=== PATIENT | female | born 1975 | race Caucasian/White ===

== ENCOUNTER → 2020-06-29 09:36 | Outpatient (BNVA) | payer MEDICAID, SELFPAY | PROVIDERS: PCP Internal Medicine; Visit Provider Physician Assistant ==

== ENCOUNTER → 2020-07-01 08:28 | Outpatient (BNVA) | payer MEDICAID, SELFPAY | PROVIDERS: PCP Internal Medicine; Visit Provider Surgery ==

== ENCOUNTER 2020-07-07 08:53 | Outpatient (REF) | payer OTHER, SELFPAY ==
--- NOTE | ~2020-07-07 | XR_ITS ---
EXAMINATION: XR CHEST CLINICAL INFORMATION: Severe obesity due to excessive calories COMPARISON: None TECHNIQUE: 2 views of the chest were obtained. FINDINGS: No significant abnormality is noted involving the heart, lungs, mediastinum, bony thorax or soft tissues. XR/XR chest 2V IMPRESSION: Unremarkable chest examination.
--- NOTE | 2020-07-07 09:15 | ECG_ITS ---
Test Reason : MORBID OBESITY Blood Pressure : / mmHG Vent. Rate : 075 BPM Atrial Rate : 075 BPM P-R Int : 136 ms QRS Dur : 080 ms QT Int : 384 ms P-R-T Axes : 025 007 014 degrees QTc Int : 428 ms Normal sinus rhythm Cannot rule out Inferior infarct , age undetermined Abnormal ECG No previous ECGs available Referred By: Jimmy Rachel Electronically Signed By:KRYS WREN MD
[2020-07-07 09:57] LABS: MANUAL DIFF FLAG NO
[2020-07-07 10:06] LABS: Basophils Percent Auto 0.4 % (0-2); Eosinophils Absolute Auto 0.1 X10*3/uL (0.0-0.4); Hematocrit 42.7 % (37-47); Hemoglobin 13.8 g/dl (12.0-16.0); Imm Gran Abs Auto 0.02 X10*3/uL (0.00-0.03); Imm Gran Pct Auto 0.3 % (0.0-0.4); Lymphocytes Absolute Auto 2.1 X10*3/uL (1.2-4.9); Lymphocytes Percent Auto 27.9 % (20-40); Mean Corpuscular HGB Conc 32.3 g/dl (31.0-35.0); Mean Corpuscular Hemoglobin 29.1 pg (27.0-33.0); Mean Corpuscular Volume 90.1 fL (80-98); Mean Platelet Volume 10.3 fL (9.4-12.3); Monocytes Absolute Auto 0.5 X10*3/uL (0.1-1.2); Monocytes Percent Auto 6.5 % (2-11); Neutrophils Absolute Auto 4.7 X10*3/uL (2.0-8.3); Neutrophils Percent Auto 63.9 % (45-73); Platelet Count 323 X10*3/uL (160-400); Red Blood Count 4.74 X10*6/uL (4.20-5.50); Red Cell Distribution Width 12.7 % (11.0-16.0); White Blood Count 7.3 X10*3/uL (4.8-10.8)
[2020-07-07 10:30] LABS: Alanine Aminotransferase 20 U/L (0-31); Albumin Level 4.3 g/dL (3.5-5.0); Alkaline Phosphatase 68 U/L (39-117); Anion Gap 12 (12-20); Aspartate Amino Transferase 19 U/L (5-31); Bilirubin Total 0.5 mg/dL (0.0-1.0); Blood Urea Nitrogen 16 mg/dL (9-16); C Reactive Protein 0.27 mg/dL (< or = 0.50); Calcium 9.3 mg/dL (8.4-10.2); Carbon Dioxide 28 mmol/L (22-29); Chloride 105 mmol/L (96-108); Cholesterol 175 mg/dL; Estimated Glomerular Filt Rate > 60; Glucose Random 91 mg/dL (60-115); HDL Cholesterol 51 mg/dL; LDL Cholesterol Calculated 110 mg/dl; Potassium 4.2 mmol/L (3.3-5.1); Sodium 141 mmol/L (135-145); Total Protein 7.5 g/dL (6.5-8.0); Triglycerides 70 mg/dL
[2020-07-07 10:32] LABS: Estimated Average Glucose 103 mg/dL; Hemoglobin A1c % 5.2 %
[2020-07-07 10:52] LABS: Ferritin 201 ng/mL (10-250); TSH reflex Free T4 0.61 uIU/mL (0.32-4.0); Vitamin D 25-OH Total 13.4 ng/mL (>30)
[2020-07-07 10:53] LABS: Folate 15.7 ng/mL (> or = 4.0); Vitamin B12 440 pg/mL (200-900)
[2020-07-08 09:22] LABS: Calcium (PTHI) 9.3 mg/dL (8.6-10.2); Insulin Level Total 4.7 uIU/mL; PTHI 48 pg/mL (14-64)
[2020-07-11 02:37] LABS: Zinc 70 mcg/dL (60-130)
[2020-07-11 21:06] LABS: Vitamin A 32 mcg/dL (38-98)
[2020-07-13 10:22] LABS: Vitamin B1 11 nmol/L (8-30)
== END 2020-07-07 08:54 | disposition home or self-care (01) ==
LOC: HO.LAB 08:53
PROVIDERS: Visit Provider Surgery
DX: E66.01 Morbid (severe) obesity due to excess calories (principal); I10 Essential (primary) hypertension; G47.30 Sleep apnea, unspecified; J45.909 Unspecified asthma, uncomplicated
CPT/HCPCS: 36415; 71046; 80053; 80061; 82306; 82607; 82728; 82746; 83036; 83525; 83970; 84425; 84443; 84590; 84630; 85025; 86140; 93005

== ENCOUNTER → 2020-07-27 08:15 | Outpatient (BNVA) | payer OTHER, SELFPAY | PROVIDERS: PCP Internal Medicine; Visit Provider Surgery ==

== ENCOUNTER 2020-08-01 07:39 | Outpatient (REF) | payer OTHER, SELFPAY ==
--- NOTE | ~2020-08-01 | FL_ITS ---
EXAMINATION: XR GI SERIES CLINICAL INFORMATION: Morbid/severe obesity due to excessive calories. COMPARISON: None. TECHNIQUE: Routine upper GI air contrast study was performed. FINDINGS: Following oral administration of thick barium and effervescent granules, there is normal propagation of bolus from the oral cavity through the pharynx, esophagus and into stomach without any evidence of obstruction, narrowing or stricture. The course, caliber and peristalsis of the stomach, duodenal bulb and the sweep are normal. On placing patient supine lying, there is moderate gastroesophageal reflux with a transitional hiatal hernia. Incidental finding of cholecystectomy. FLUOROSCOPY TIME: 2.5 minutes. DOSE AREA PRODUCT: 63.747 uGy-m2 (microgray-meter squared). FL/FL upper GI series IMPRESSION: Moderate gastroesophageal reflux with a transient hiatal hernia. The rest of the upper GI exam is unremarkable.
--- NOTE | ~2020-08-01 | US_ITS ---
EXAMINATION: US COMPLETE ABDOMEN WITH LIVER ELASTOGRAPHY CLINICAL INFORMATION: Morbid obesity due to excess calories. COMPARISON: 05/01/2018 TECHNIQUE: Real-time imaging of the abdominal viscera. Noninvasive ultrasound liver fibrosis assessment is performed using Denise ElastPQ point quantification shear wave elastography (pSWE) with a C5-2 MHz transducer. Multiple elastography samples are obtained. FINDINGS: PANCREAS: Normal. ABDOMINAL AORTA: The proximal, middle, and distal aortic segments are normal in caliber. INFERIOR VENA CAVA: Visualized portions are normal. LIVER: Normal. The liver demonstrates normal size, contour and echogenicity. No focal lesion or intrahepatic biliary duct dilatation. The right lobe measures 15.8 cm in length. The left lobe measures 8.9 cm in length. Portal flow is towards the liver (hepatopetal). Shear wave liver elastography median stiffness is 1.53 m/s (reference: normal median stiffness is 1.3 m/s or less). IQR/median stiffness to assess sampling precision is 0.15 (reference: good quality data set is IQR/median stiffness of 0.15 or less). GALLBLADDER: Cholecystectomy. COMMON BILE DUCT: Normal in caliber measuring 0.2 cm in diameter. RIGHT KIDNEY: Normal. No hydronephrosis. No renal calculi or focal parenchymal lesions. The kidney measures 10.6 cm in maximum dimension. LEFT KIDNEY: Normal. No hydronephrosis. No renal calculi or focal parenchymal lesions. The kidney measures 10.5 cm in maximum dimension. SPLEEN: Normal. The spleen measures 8.6 cm in maximum dimension. FREE FLUID: None. US/US abdomen comp w elastography IMPRESSION: 1. Unremarkable abdominal ultrasound. 2. Liver elastography: In the absence of other known clinical signs, measurements rule out compensated advanced chronic liver disease. If there are known clinical signs, further testing may be needed for confirmation. REFERENCE: Society of Radiologists in Ultrasound Liver Stiffness Thresholds (2020): LIVER STIFFNESS THRESHOLDS: *Liver Stiffness equal or less than 1.3 m/s: High probability of being normal. *Liver Stiffness less than 1.7 m/s: In the absence of other known clinical signs, rules out compensated advanced chronic liver disease. *Liver Stiffness 1.7-2.1 m/s: Suggestive of compensated advanced chronic liver disease but need further test for confirmation. *Liver Stiffness over 2.1 m/s: Rules in compensated advanced chronic liver disease. *Liver Stiffness over 2.4 m/s: Suggestive of clinically significant portal hypertension. QUALITY OF DATA SET: *IQR/Median value equal or less than 0.15 implies a quality data set. *IQR/Median value over 0.15 implies a poor quality data set. SIGNIFICANT CHANGE FROM PRIOR EXAM: Significant change if liver stiffness measurement is 10% or greater from prior exam. OTHER CONSIDERATIONS: The stage of liver fibrosis may be overestimated in the setting of acute hepatitis, liver inflammation, elevated liver function tests, hepatic vascular congestion, obstructive cholestasis, non-fasting state, and infiltrative diseases such as amyloidosis and lymphoma. In some patients with NAFLD, the liver stiffness thresholds for compensated advanced chronic liver disease may be lower. In causes other than viral hepatitis and NAFLD, liver stiffness thresholds are not well established.
== END 2020-08-01 07:40 | disposition home or self-care (01) ==
LOC: HO.US 07:39
PROVIDERS: PCP Internal Medicine; Visit Provider Surgery
DX: Z01.818 Encounter for other preprocedural examination (principal); E66.01 Morbid (severe) obesity due to excess calories; K21.9 Gastro-esophageal reflux disease without esophagitis; I10 Essential (primary) hypertension; G47.33 Obstructive sleep apnea (adult) (pediatric); J45.909 Unspecified asthma, uncomplicated
CPT/HCPCS: 74240; 76705; 76981

== ENCOUNTER → 2020-08-03 07:49 | Outpatient (REF) | payer OTHER, SELFPAY ==
--- NOTE | 2020-08-03 07:54 | CA_ITS ---
Acquisition Time: 2020-08-03 09:04:59 Total Exercise Time: 00:06:09 Test Indications: Abnormal ECG Medications: SINGULAIR VERAPAMIL Protocol: SONNY Max HR: 155 BPM 88% of Pred: 175 BPM Max BP: 140/080 mmHG Max Work Load: 7.1 METS Exercise stress test using Sonny protocol. total of 6 min 9 sec. With METS 7.10, and TAPHR up to 88 %. Pt tolerated well, denies any anginal sx. EKG with occ. PAC's in recovery. No ischemic changes seen during exercise or in recovery period. Normotensive response to exercise . Test reviewed with Dr. Macdonald. Referred By: Jimmy Rachel Overread By: Millicent Montaño
== END ==
LOC: HO.CARD 07:49
PROVIDERS: Visit Provider Surgery
DX: Z01.818 Encounter for other preprocedural examination (principal); R06.02 Shortness of breath; R94.31 Abnormal electrocardiogram [ECG] [EKG]; I10 Essential (primary) hypertension
CPT/HCPCS: 93016; 93017; 93018

== ENCOUNTER 2020-08-05 14:44 | Outpatient (REF) | payer OTHER, SELFPAY ==
--- NOTE | ~2020-08-05 | MM_ITS ---
EXAMINATION: MM SCREENING DIGITAL BREAST TOMOSYNTHESIS, BILATERAL CLINICAL INFORMATION: Screening. Asymptomatic. The lifetime risk of breast cancer based on the Tyrer-Cuzick Model is 6%. COMPARISON: Outside mammography 06/14/2017, 04/14/2016, 09/13/2015 ([facility]). TECHNIQUE: Digital breast tomosynthesis is performed in both the craniocaudal and mediolateral oblique views along with computer-aided detection (CAD). Synthesized 2D images are generated from the tomosynthesis. Additional bilateral CC and right MLO views are provided. FINDINGS: There are scattered areas of fibroglandular density (ACR BI-RADS breast composition Category b). Parenchymal pattern is similar to prior exams. Smooth oval asymmetry central right breast is stable. There is no developing density or architectural abnormality or abnormal calcifications. The axilla and skin contours are unremarkable. MM/MM tomosynthesis screening BI IMPRESSION: No significant changes from prior outside exams. ASSESSMENT: BI-RADS 2: Benign RECOMMENDATION: Routine annual mammography screening. This patient's information was entered into a reminder system with a target due date for their next mammogram.
[2020-08-06 15:12] LABS: H Pylori Breath Test NOT DETECTED (NOT DETECTED)
== END 2020-08-05 14:45 | disposition home or self-care (01) ==
LOC: HO.MAMMO 14:44
PROVIDERS: PCP Internal Medicine; Referring Provider Surgery; Visit Provider Internal Medicine
DX: Z12.31 Encounter for screening mammogram for malignant neoplasm of breast (principal); E66.01 Morbid (severe) obesity due to excess calories; I10 Essential (primary) hypertension; G47.30 Sleep apnea, unspecified; J45.909 Unspecified asthma, uncomplicated
CPT/HCPCS: 77063; 77067; 83013; 99211

== ENCOUNTER → 2020-08-10 08:14 | Outpatient (BNVA) | payer OTHER, SELFPAY | PROVIDERS: PCP Internal Medicine; Visit Provider Dietitian, Registered ==

== ENCOUNTER → 2020-08-22 08:10 | Outpatient (BNVA) | payer OTHER, SELFPAY | PROVIDERS: PCP Internal Medicine; Visit Provider Surgery ==

== ENCOUNTER → 2020-08-29 08:11 | Outpatient (BNVA) | payer OTHER, SELFPAY | PROVIDERS: PCP Internal Medicine; Visit Provider Dietitian, Registered | DX: E66.01 Morbid (severe) obesity due to excess calories (principal) | CPT/HCPCS: 97803 ==

== ENCOUNTER → 2020-09-02 07:38 | Outpatient (REF) | payer OTHER, SELFPAY ==
--- NOTE | 2020-09-02 07:43 | CA_ITS ---
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 The visually estimated ejection fraction is between 55-60%. - No obvious valvular pathology seen on this study. Findings Procedure Information Contrast agent, definity, is being given per protocol without apparent complications. Left Ventricle Normal left ventricular cavity size. There is normal left ventricular wall thickness. The left ventricular systolic function is normal. The visually estimated ejection fraction is between 55-60%. There is no evidence of regional wall motion abnormalities. Diastolic function is normal for age. Right Ventricle Normal right ventricular cavity size and systolic function. Atria The left atrium is normal in size. The right atrium is normal in size. Aortic Valve The aortic valve was not well visualized. There is no aortic valve stenosis. There is no aortic valve regurgitation. Mitral Valve The mitral valve appears normal. There is no mitral valve regurgitation. There is no mitral valve stenosis. Pulmonic Valve The pulmonic valve was not well visualized. Tricuspid Valve Normal tricuspid valve structure. There is trace tricuspid valve regurgitation. The pulmonary artery systolic pressure is normal. Great Vessels The aortic annulus, sinuses of valsalva, and asc aorta are normal in size. Venous The inferior vena cava is normal in size and collapses greater than 50% with inspiration. Pericardium/Pleural There is no evidence of pericardial effusion. Prior Study Comparison No significant change compared to prior study dated: 08/08/2018. Recommendations, Care & Conclusions No obvious valvular pathology seen on this study. Measurements 2D Linear Measurements RVIDd: 3.20 RVIDd Index: 1.57 IVSd: 0.93 0.6-0.9/0.6-1.0 cm LVIDd: 3.83 3.9-5.3/4.2-5.9 cm LVIDd Index: 1.88 2.4-3.2/2.2-3.1 cm/m2 LVIDs: 2.50 2.0-3.6 cm LVPWd: 0.81 0.7-1.1 cm Ao Root: 3.20 2.1-3.5 cm LA Diam: 3.30 2.7-3.8/3.0-4.0 cm LAIDs Index: 1.62 1.5-2.3 cm/m2 LV Mass: 121.39 67-162/88-224 g LV Mass Index: 59.50 43-95/49-115 g/m2 LVOT Diam: 2.40 3.0+(-)1.3 cm 2D Systolic Function EF 4C: 55.50 >55% EF 2C: 69.20 >55% EF BiP: 62.10 >55% Mitral Valve MV Pk E: 0.84 MV PK A: 0.66 MV Decel Time: 202.00 E/A: 1.30 E'Lateral: 12.80 E'Medial: 9.68 E/E' Med: 8.70 E/E' Lat: 6.60 PHT: 59.00 MVA PHT: 3.73 Decel Howell: 4.16 Aortic Valve AoV Pk Octavio: 1.26 AoV Mn Octavio: 0.85 AoV VTI: 0.28 AoV Pk Grad: 6.00 Aov Mn Grad: 3.00 JOE Cont.VTI: 3.26 LVOT LVOT Pk Octavio: 0.80 LVOT Mn Octavio: 0.57 LVOT VTI: 0.21 LVOT Pk Grad: 3.00 LVOT Mn Grad: 2.00 LVOT Diam: 2.40 LVOT Area: 4.52 Diastolic Function MV Pk E: 0.84 MV Pk A: 0.66 E/A: 1.30 E'Medial: 9.68 E/E' Med: 8.70 E' Laterial: 12.80 E/E' Lat: 6.60 Tricuspid Valve TR Pk Octavio: 1.80 TR Pk Grad: 13.00 RA Press: 3.00 RVSP: 16.00 Great Vessels Aorta Ao Root-2D: 3.20 2.0-3.7 cm Ao Asc: 3.00 2.1-3.4 cm Pulmonary Valve PV Pk Octavio: 0.90 Peak PV Grad: 3.00 Updated in Other Vendor System with Status of Final Eduardo Rosas MD electronically signed on 09/03/2020 1:00:12 PM with status of Final
== END ==
LOC: HO.CARD 07:38
PROVIDERS: Visit Provider Surgery
DX: Z01.818 Encounter for other preprocedural examination (principal); R94.31 Abnormal electrocardiogram [ECG] [EKG]; R06.02 Shortness of breath; I10 Essential (primary) hypertension; E66.9 Obesity, unspecified
CPT/HCPCS: 93306; Q9957

== ENCOUNTER → 2020-09-12 09:01 | Outpatient (BNVA) | payer OTHER, SELFPAY | PROVIDERS: PCP Internal Medicine; Visit Provider Dietitian, Registered | DX: E66.01 Morbid (severe) obesity due to excess calories (principal); Z68.41 Body mass index [BMI] 40.0-44.9, adult | CPT/HCPCS: 97803 ==

== ENCOUNTER → 2020-09-14 08:24 | Outpatient (BNVA) | payer OTHER, SELFPAY | PROVIDERS: PCP Internal Medicine; Visit Provider Surgery ==

== ENCOUNTER → 2020-10-07 08:14 | Outpatient (BNVA) | payer OTHER, SELFPAY | PROVIDERS: PCP Internal Medicine; Visit Provider Surgery ==

== ENCOUNTER → 2020-10-28 15:18 | Outpatient (BNVA) | payer OTHER, SELFPAY | PROVIDERS: PCP Internal Medicine; Visit Provider Physician Assistant ==

== ENCOUNTER → 2020-11-07 07:46 | Outpatient (BNVA) | payer OTHER, SELFPAY | PROVIDERS: PCP Internal Medicine; Visit Provider Surgery ==

== ENCOUNTER → 2020-12-12 07:55 | Outpatient (BNVA) | payer OTHER, SELFPAY | PROVIDERS: PCP Internal Medicine; Visit Provider Surgery ==

== ENCOUNTER → 2021-01-25 07:12 | Outpatient (BNVA) | payer OTHER, SELFPAY | PROVIDERS: PCP Internal Medicine; Visit Provider Surgery ==

== ENCOUNTER → 2021-02-07 09:42 | Outpatient (BNVA) | payer OTHER, SELFPAY | PROVIDERS: PCP Surgery; Referring Provider Surgery; Visit Provider Physician Assistant ==

== ENCOUNTER → 2021-02-10 12:14 | Outpatient (BNVA) | payer OTHER, SELFPAY | PROVIDERS: Visit Provider Physician Assistant Surgical ==

== ENCOUNTER → 2021-02-13 08:29 | Outpatient (BNVA) | payer OTHER, SELFPAY | PROVIDERS: Visit Provider Surgery ==

== ENCOUNTER → 2021-02-15 10:30 | Outpatient (BNVA) | payer OTHER, SELFPAY | PROVIDERS: PCP Internal Medicine; Visit Provider Physician Assistant ==

== ENCOUNTER → 2021-02-17 12:55 | Outpatient (BNVA) | payer OTHER, SELFPAY | PROVIDERS: PCP Internal Medicine; Visit Provider Physician Assistant ==

== ENCOUNTER → 2021-02-20 09:02 | Outpatient (BNVA) | payer OTHER, SELFPAY | PROVIDERS: PCP Internal Medicine; Visit Provider Physician Assistant Surgical ==

== ENCOUNTER 2021-02-22 12:07 | Inpatient (IN) | payer OTHER, SELFPAY ==
[2021-02-15 10:53] LABS: MANUAL DIFF FLAG NO
[2021-02-15 10:59] LABS: Basophils Absolute Auto 0.1 X10*3/uL (0.0-0.2); Basophils Percent Auto 0.6 % (0-2); Eosinophils Absolute Auto 0.1 X10*3/uL (0.0-0.4); Hematocrit 44.3 % (37-47); Hemoglobin 14.5 g/dl (12.0-16.0); Imm Gran Abs Auto 0.02 X10*3/uL (0.00-0.03); Imm Gran Pct Auto 0.2 % (0.0-0.4); Lymphocytes Absolute Auto 2.4 X10*3/uL (1.2-4.9); Mean Corpuscular HGB Conc 32.7 g/dl (31.0-35.0); Mean Corpuscular Hemoglobin 29.6 pg (27.0-33.0); Mean Corpuscular Volume 90.4 fL (80-98); Mean Platelet Volume 10.2 fL (9.4-12.3); Monocytes Absolute Auto 0.5 X10*3/uL (0.1-1.2); Monocytes Percent Auto 6.2 % (2-11); Neutrophils Absolute Auto 5.7 X10*3/uL (2.0-8.3); Platelet Count 329 X10*3/uL (160-400); Red Cell Distribution Width 13.4 % (11.0-16.0); White Blood Count 8.7 X10*3/uL (4.8-10.8)
[2021-02-15 11:03] LABS: Prothrombin Time 11.5 SEC (9.9-13.0)
[2021-02-15 11:07] LABS: Estimated Average Glucose 105 mg/dL; Hemoglobin A1c % 5.3 %
[2021-02-15 11:19] LABS: Alanine Aminotransferase 38 U/L (0-31); Albumin Level 4.3 g/dL (3.5-5.0); Alkaline Phosphatase 78 U/L (39-117); Anion Gap 13 (12-20); Aspartate Amino Transferase 22 U/L (5-31); Bilirubin Total 0.3 mg/dL (0.0-1.0); Blood Urea Nitrogen 9 mg/dL (9-16); C Reactive Protein 0.32 mg/dL (< or = 0.50); Calcium 9.7 mg/dL (8.4-10.2); Carbon Dioxide 26 mmol/L (22-29); Chloride 106 mmol/L (96-108); Cholesterol 202 mg/dL; Estimated Glomerular Filt Rate > 60; Glucose Random 100 mg/dL (60-115); HDL Cholesterol 51 mg/dL; LDL Cholesterol Calculated 132 mg/dl; Potassium 4.7 mmol/L (3.3-5.1); Sodium 140 mmol/L (135-145); Total Protein 7.5 g/dL (6.5-8.0); Triglycerides 97 mg/dL
[2021-02-15 11:41] LABS: TSH reflex Free T4 0.75 uIU/mL (0.32-4.0)
[2021-02-16 10:25] VITALS: BMI 38.9
[2021-02-17 05:25] LABS: Insulin Level Total 9.4 uIU/mL
--- NOTE | 2021-02-19 21:10 | MHC.SHP ---
Pre-Procedural Eval Section A Date of Service: 02/19/21 The patient is an INPATIENT: Yes The History & Physical has been completed within 30 days and I have reviewed it.: Yes Section B Chief Complaint: obesity Relevant Family History (Specify if Yes): No Relevant Social History: None Present Medications: None Medical History: No relevant PMH History of Previous Operations: No relevant previous surgery Allergies: Allergies Allergy/AdvReac Type Severity Reaction Status Date / Time cortisone Allergy Severe Anaphylaxis Verified 02/13/21 12:57 topiramate [Topamax] Allergy Severe Anaphylaxis Verified 02/13/21 12:57 Review of Systems Sugical H&P ROS: Negative: Constitution, Cardiovascular, Respiratory, Neurological, Psychiatric, Hem-Onc, Allergic/Immunologic, Gastrointestinal, Genitourinary, Musculoskeletal, Integumentary, Endocrine and Eyes/Ears/Nose/Throat Exam Surgical H&P Exam: Normal: HEENT, Normal: Heart, Normal: Lungs, Normal: Extremities, Normal: Abdomen, Normal: Skin and Normal: Neurological Plan Diagnosis/Plan: Unchanged I have reviewed the history and physical and performed a pertinent physical examination on my patient. No changes have occurred unless specified.
--- NOTE | 2021-02-21 09:14 | P.CONAN_ITS ---
Documented by User: Radha Carnes NP 02/21/21 09:17 [facility] Active Problems Active Problems: All Active Problems (Updated 02/16/21 @ 10:24 by Lia Daugherty RN) Abnormal EKG (Acute) Vitamin A deficiency (Acute) Vitamin D deficiency (Acute) Vitamin B12 deficiency (Acute) Adjustment disorder, unspecified (Acute) Obesity (Acute) BMI 39.0-39.9,adult (Acute) BMI 38.0-38.9,adult (Acute) BMI 37.0-37.9, adult (Acute) Sleep apnea with use of continuous positive airway pressure (CPAP) (Acute) Gout (Acute) DJD (degenerative joint disease) (Acute) Asthma (Acute) Hypertension (Acute) Morbid obesity (Acute) Past Medical History Medical History (Updated 02/16/21 @ 10:24 by Lia Daugherty RN) Arthritis Asthma COVID-19 vaccine series completed DJD (degenerative joint disease) Gout Hypertension Morbid obesity Plantar fasciitis of right foot Sleep apnea with use of continuous positive airway pressure (CPAP) Family History Family History Mother Fibromyalgia Hypertension Cancer Father Diabetes Hypertension Heart disease Brother No problems noted. Sister No problems noted. Sister No problems noted. Sister No problems noted. Son No problems noted. Daughter No problems noted. Surgical History Surgical History History of total hysterectomy Hx of cholecystectomy Social History Social History Are you a primary animal care provider to a significant other at home: No Do you presently have visiting nurse or other home services: No Alcohol intake: current Alcohol intake frequency: holidays/special occasions only Patient Tobacco Use Status: Former Tobacco user Quit Date: 7 yrs ago Tobacco use type: Cigarette Use of substances other than those prescribed or required for medical reasons: No Have you been hit, kicked, punched, or otherwise hurt by someone within the past year? If so, by whom?: No Are you DNR?: No Advance Directives: No Advance Directives Information Provided: No Advance Directives on File: No Recently lost weight without trying: No How much weight loss: 24-33 pounds Nutrition Risks: No Nutritional Risk Patient : No : No Meds Allergies Allergy/AdvReac Type Severity Reaction Status Date / Time cortisone Allergy Severe Anaphylaxis Verified 02/13/21 12:57 topiramate [Topamax] Allergy Severe Anaphylaxis Verified 02/13/21 12:57 Home Medications Medication Instructions Recorded Confirmed Last Taken Type albuterol sulfate 90 mcg/actuation 2 puff INHALATION Q6H PRN 07/01/20 02/16/21 Unknown History aerosol inhaler (ProAir HFA) diclofenac sodium 75 mg 75 mg PO BID 07/01/20 02/16/21 02/14/21 History tablet,delayed release fluticasone propionate 50 1 inh INHALATION BID 07/01/20 02/13/21 Unknown History mcg/actuation blister powder for inhalation (Flovent Diskus) galcanezumab-gnlm 120 mg/mL mg SUBCUT PRN 07/01/20 02/13/21 02/14/21 History subcutaneous pen injector (Emgality Pen) montelukast 10 mg tablet 10 mg PO DAILY 07/01/20 02/16/21 Unknown History (Singulair) sumatriptan succinate 50 mg tablet 50 mg PO Q2-4H PRN 07/01/20 02/16/21 02/14/21 History (Imitrex) triamcinolone acetonide 0.5 % 1 appl TOPICAL DAILY 07/01/20 02/16/21 Unknown History topical cream verapamil 120 mg 24 hr 120 mg PO DAILY 07/01/20 02/16/21 Unknown History capsule,extended release Exam Exam Date and Time: February 21, 2021 0914 Height,Weight and Vital Signs: Height 5 ft 2 in Weight 96.615 kg Pertinent Lab Results Pertinent Lab Results: Laboratory Tests 02/15/21 02/15/21 02/15/21 10:20 10:20 10:20 WBC 8.7 RBC 4.90 Hgb 14.5 Hct 44.3 MCV 90.4 MCH 29.6 MCHC 32.7 RDW 13.4 Plt Count 329 MPV 10.2 Immature Gran % (Auto) 0.2 Neut % (Auto) 65.0 Lymph % (Auto) 27.0 [place] % (Auto) 6.2 Eos % (Auto) 1.0 Baso % (Auto) 0.6 Lymph # (Auto) 2.4 [place] # (Auto) 0.5 Eos # (Auto) 0.1 Baso # (Auto) 0.1 Abs Immat Gran (auto) 0.02 Absolute Neuts (auto) 5.7 Absolute Nucleated RBC 0.000 Nucleated RBC % (auto) 0.0 PT 11.5 INR 1.0 APTT 33.0 Sodium 140 Potassium 4.7 Chloride 106 Carbon Dioxide 26 Anion Gap 13 BUN 9 Creatinine 0.75 Estim Creat Clear Calc TNP Estimated GFR > 60 Random Glucose 100 Estimat Average Glucose Hemoglobin A1c % Total Insulin Calcium 9.7 Total Bilirubin 0.3 AST 22 ALT 38 H Alkaline Phosphatase 78 C-Reactive Protein 0.32 Total Protein 7.5 Albumin 4.3 Triglycerides 97 Cholesterol 202 LDL Cholesterol, Calc 132 HDL Cholesterol 51 TSH 0.75 Blood Type Antibody Screen 02/15/21 02/15/21 02/15/21 10:20 10:20 13:40 WBC RBC Hgb Hct MCV MCH MCHC RDW Plt Count MPV Immature Gran % (Auto) Neut % (Auto) Lymph % (Auto) [place] % (Auto) Eos % (Auto) Baso % (Auto) Lymph # (Auto) [place] # (Auto) Eos # (Auto) Baso # (Auto) Abs Immat Gran (auto) Absolute Neuts (auto) Absolute Nucleated RBC Nucleated RBC % (auto) PT INR APTT Sodium Potassium Chloride Carbon Dioxide Anion Gap BUN Creatinine Estim Creat Clear Calc Estimated GFR Random Glucose Estimat Average Glucose 105 Hemoglobin A1c % 5.3 Total Insulin 9.4 Calcium Total Bilirubin AST ALT Alkaline Phosphatase C-Reactive Protein Total Protein Albumin Triglycerides Cholesterol LDL Cholesterol, Calc HDL Cholesterol TSH Blood Type A Positive Antibody Screen NEGATIVE Narrative Narrative: EKG 06/2020 Vent. Rate : 075 BPM ? ? Atrial Rate : 075 BPM ?? P-R Int : 136 ms? QRS Dur : 080 ms ? ? QT Int : 384 ms ? ? ? P-R-T Axes : 025 007 014 degrees ?? QTc Int : 428 ms ? Normal sinus rhythm Cannot rule out Inferior infarct , age undetermined Abnormal ECG No previous ECGs available EXERCISE STRESS 07/2020 Exercise stress test using Reuben protocol.? total of 6 min 9 sec.? With METS ?7.10, and TAPHR up to 88 %.? Pt tolerated well, denies any anginal sx.? EKG ?with occ. PAC's in recovery.? No ischemic changes seen during exercise or in ?recovery period.? Normotensive response to exercise .? Test reviewed with Dr. Thornton. ECHO 08/2020 Conclusions: - The left ventricular systolic function is normal.? The visually estimated ejection fraction is between 55-60%. ? - No obvious valvular pathology seen on this study.?? Assessment and Plan Assessment Anesthesia Assessment: Chart Reviewed Documented by User: Annette Ku MD 02/22/21 13:29 HPI - Anesthesia Eval Consult details Narrative: 45 yo female patient for sleeve gastrectomy, EGD, possible diaphragmatic hernia repair, possible ventral hernia repair, possible open PMFSH Active Problems Active Problems: All Active Problems (Updated 02/16/21 @ 10:24 by Lia Daugherty RN) Abnormal EKG ? Inferior infarct on EKG 07/07/20. Echo and stress test - wnl. No ischemia Vitamin A deficiency (Acute) Vitamin D deficiency (Acute) Vitamin B12 deficiency (Acute) Adjustment disorder, unspecified (Acute) Obesity (Acute) BMI 39.0-39.9,adult (Acute) BMI 38.0-38.9,adult (Acute) BMI 37.0-37.9, adult (Acute) Sleep apnea with use of continuous positive airway pressure (CPAP) (Acute) Gout - meds prn with flares DJD (degenerative joint disease) (Acute) Asthma. Controlled. Inhaler prn Hypertension (Acute) Morbid obesity (Acute) Migraines Past Medical History Medical History (Updated 02/16/21 @ 10:24 by Lia Daugherty RN) Arthritis Asthma COVID-19 vaccine series completed DJD (degenerative joint disease) Gout Hypertension Morbid obesity Plantar fasciitis of right foot Sleep apnea with use of continuous positive airway pressure (CPAP) Family History Family History Mother Fibromyalgia Hypertension Cancer Father Diabetes Hypertension Heart disease Brother No problems noted. Sister No problems noted. Sister No problems noted. Sister No problems noted. Son No problems noted. Daughter No problems noted. Family history of problems with anesthesia: No Surgical History Surgical History History of total hysterectomy Hx of cholecystectomy History of Problems with Anesthesia: No Social History Social History Are you a primary animal care provider to a significant other at home: No Do you presently have visiting nurse or other home services: No Alcohol intake: current Alcohol intake frequency: holidays/special occasions only Patient Tobacco Use Status: Former Tobacco user Quit Date: 7 yrs ago Tobacco use type: Cigarette Use of substances other than those prescribed or required for medical reasons: No Have you been hit, kicked, punched, or otherwise hurt by someone within the past year? If so, by whom?: No Are you DNR?: No Advance Directives: No Advance Directives Information Provided: No Advance Directives on File: No Recently lost weight without trying: No How much weight loss: 24-33 pounds Nutrition Risks: No Nutritional Risk Patient : No : No Meds Allergies Allergy/AdvReac Type Severity Reaction Status Date / Time cortisone Allergy Severe Anaphylaxis Verified 02/13/21 12:57 topiramate [Topamax] Allergy Severe Anaphylaxis Verified 02/13/21 12:57 Home Medications Medication Instructions Recorded Confirmed Last Taken Type albuterol sulfate 90 mcg/actuation 2 puff INHALATION Q6H PRN 07/01/20 02/16/21 Unknown History aerosol inhaler (ProAir HFA) diclofenac sodium 75 mg 75 mg PO BID 07/01/20 02/16/21 02/14/21 History tablet,delayed release fluticasone propionate 50 1 inh INHALATION BID 07/01/20 02/13/21 Unknown History mcg/actuation blister powder for inhalation (Flovent Diskus) galcanezumab-gnlm 120 mg/mL mg SUBCUT PRN 07/01/20 02/13/21 02/14/21 History subcutaneous pen injector (Emgality Pen) montelukast 10 mg tablet 10 mg PO DAILY 07/01/20 02/16/21 Unknown History (Singulair) sumatriptan succinate 50 mg tablet 50 mg PO Q2-4H PRN 07/01/20 02/16/21 02/14/21 History (Imitrex) triamcinolone acetonide 0.5 % 1 appl TOPICAL DAILY 07/01/20 02/16/21 Unknown History topical cream verapamil 120 mg 24 hr 120 mg PO DAILY 07/01/20 02/16/21 Unknown History capsule,extended release Exam Height,Weight and Vital Signs: Height 5 ft 2 in Weight 96.615 kg Vital Signs Temp Pulse Resp BP Pulse Ox 02/22/21 12:11 97.6 F 82 16 126/88 99 Pertinent Lab Results Pertinent Lab Results: Laboratory Tests 02/15/21 02/15/21 02/15/21 10:20 10:20 10:20 WBC 8.7 RBC 4.90 Hgb 14.5 Hct 44.3 MCV 90.4 MCH 29.6 MCHC 32.7 RDW 13.4 Plt Count 329 MPV 10.2 Immature Gran % (Auto) 0.2 Neut % (Auto) 65.0 Lymph % (Auto) 27.0 [place] % (Auto) 6.2 Eos % (Auto) 1.0 Baso % (Auto) 0.6 Lymph # (Auto) 2.4 [place] # (Auto) 0.5 Eos # (Auto) 0.1 Baso # (Auto) 0.1 Abs Immat Gran (auto) 0.02 Absolute Neuts (auto) 5.7 Absolute Nucleated RBC 0.000 Nucleated RBC % (auto) 0.0 PT 11.5 INR 1.0 APTT 33.0 Sodium 140 Potassium 4.7 Chloride 106 Carbon Dioxide 26 Anion Gap 13 BUN 9 Creatinine 0.75 Estim Creat Clear Calc TNP Estimated GFR > 60 Random Glucose 100 Estimat Average Glucose Hemoglobin A1c % Total Insulin Calcium 9.7 Total Bilirubin 0.3 AST 22 ALT 38 H Alkaline Phosphatase 78 C-Reactive Protein 0.32 Total Protein 7.5 Albumin 4.3 Triglycerides 97 Cholesterol 202 LDL Cholesterol, Calc 132 HDL Cholesterol 51 TSH 0.75 Blood Type Antibody Screen 02/15/21 02/15/21 02/15/21 10:20 10:20 13:40 WBC RBC Hgb Hct MCV MCH MCHC RDW Plt Count MPV Immature Gran % (Auto) Neut % (Auto) Lymph % (Auto) [place] % (Auto) Eos % (Auto) Baso % (Auto) Lymph # (Auto) [place] # (Auto) Eos # (Auto) Baso # (Auto) Abs Immat Gran (auto) Absolute Neuts (auto) Absolute Nucleated RBC Nucleated RBC % (auto) PT INR APTT Sodium Potassium Chloride Carbon Dioxide Anion Gap BUN Creatinine Estim Creat Clear Calc Estimated GFR Random Glucose Estimat Average Glucose 105 Hemoglobin A1c % 5.3 Total Insulin 9.4 Calcium Total Bilirubin AST ALT Alkaline Phosphatase C-Reactive Protein Total Protein Albumin Triglycerides Cholesterol LDL Cholesterol, Calc HDL Cholesterol TSH Blood Type A Positive Antibody Screen NEGATIVE Laboratory Results - last 24 hr 02/22/21 11:59 COVID-19 ([facility]) Negative COVID-19 Clin Com See Note Airway Mallampati Class: II TM Dist: >3cm Neck ROM: Full Heart: RRR Lungs: CTAB Assessment and Plan Assessment Anesthesia Assessment: Anesthesia Plan Discussed Final Anesthetic Review Family History of Problems with Anesthesia: No History of Problems with Anesthesia: No NPO: Yes ASA Class: III Final Preanesthetic Review: No Changes in Pt Med Stat, Meds/Allgs Chart Reviewed, Consent Obtained/Reviewed and Anes Risks/Benef Reviewed Patient Risk: Intermediate Procedure Risk: Intermediate Assessment/Block/Sedation in SS: Assess/Block/Sedation-SS Anesthetic Plan Anesthetic Plan: GA Disposition: Standard PACU and Inp. Admit - Standard Bed
[2021-02-22] VITALS (11 sets, daily range): BP systolic 126–157; BP diastolic 69–99; PULSE 77–106; RESP 16–19; TEMP 36.3–36.4; O2SAT 95–99
[2021-02-22 12:36] LABS: COVID-19 Test Negative (Negative); IDNOW Serial# 08D9AD1C
[2021-02-22] MEDS: Lactated Ringers 1,000 ML 100 ML IVCONT (12:43)
[2021-02-22] MEDS: Lactated Ringers 1,000 ML 999 ML IV (12:44)
--- NOTE | 2021-02-22 14:53 | PM.PNGS ---
Subjective Subjective Date of Service: 02/23/21 Interval history: Patient has mild incisional pain, but was able to ambulate and use the incentive spirometer. She is tolerating phase 1 bariatric diet Physical Exam Vital Signs: Vital Signs: Last Vital Signs Temp 97.6 F 02/22/21 12:11 Pulse 82 02/22/21 12:11 Resp 16 02/22/21 12:11 BP 126/88 02/22/21 12:11 Pulse Ox 99 02/22/21 12:11 Body Mass Index 38.9 GI: Inspection: Yes normal to inspection and Yes incision (clean, dry and intact) Extrem: Right lower extremity: normal to inspection (no calf tenderness) Left lower extremity: normal to inspection (no calf tenderness) Procedures Date of Service Date of Service: 02/23/21 Progress Note: A&P Assessment and plan (1) Obesity: Status: Acute Assessment and Plan: s/p laparoscopic sleeve gastrectomy and gastropexy Doing well Check am labs. If OK, will discharge home? (2) BMI 38.0-38.9,adult: Status: Acute (3) Sleep apnea with use of continuous positive airway pressure (CPAP): Status: Acute (4) Hypertension: Status: Acute (5) Asthma: Status: Acute (6) DJD (degenerative joint disease): Status: Acute (7) Gout: Status: Acute (8) Steatosis, liver: Status: Acute (9) GERD (gastroesophageal reflux disease): Status: Acute (10) Diaphragmatic hernia: (11) Migraines: Status: Acute (12) S/P laparoscopic sleeve gastrectomy: Status: Acute Fall Risk Details Current Medications: Current Medications Albuterol Sulfate (Albuterol Sulfate (0.083%) 2.5 Mg/3 Ml Vial.Neb) 2.5 mg INHALE ONCE PRN PRN Reason: Shortness of Breath/Wheezing Fentanyl (Fentanyl Citrate/Pf 100 Mcg/2 Ml Vial) 25 mcg IVPUSH Q5M PRN; Protocol PRN Reason: Pain, Moderate (Pain Scale 4-6 Hydromorphone HCl (Hydromorphone Hcl 0.5 Mg/0.5 Ml Syringe) 0.25 mg IVPUSH Q5M PRN; Protocol PRN Reason: Pain, Severe (Pain Scale 7-10) Lactated Ringer's (Lr) 1,000 mls @ 100 mls/hr IVCONT .Q10H FRANTZ Last Admin: 02/22/21 12:43 Dose: 100 mls/hr Documented by: Promethazine HCl 6.25 mg/ (Sodium Chloride) 50.25 mls @ 201 mls/hr IV ONCE PRN PRN Reason: Nausea and Vomiting Ondansetron HCl (Ondansetron Hcl 4 Mg/2 Ml Vial) 4 mg IVPUSH ONCE PRN PRN Reason: Nausea and Vomiting Time Spent With Patient Time: Total time spent is greater than 50% in coordination of care (as documented) at patient's floor/unit and/or counseling patient: Time with patient: less than 15 minutes Quality Stroke Does the patient have a stroke diagnosis?: No VTE Prior VTE?: No VTE Risk Level:: Surgical - moderate VTE Device Contraindication: N/A - Device Ordered VTE Drug Contraindication: Treatment Not Indicated
--- NOTE | 2021-02-22 14:56 | PM.OP ---
Brief Operative Note Date of Service: 02/22/21 Pre-op diagnosis: Severe obesity with comorbidities (see below) Post-op diagnosis: same Procedure: INITIAL PATIENT BMI ON PRESENTATION AT OUR OFFICE: 44.8 kg/m2 LAST BMI BEFORE SURGERY: 38.9 kg/m2 COMORBIDITIES: sleep apnea on CPAP, asthma, hypertension, migraines, DJD, gout, GERD, diaphragmatic hernia, liver steatosis The patient participated in an intensive weekly lifestyle ?intervention and exercise program during which the patient ?has lost between the initial office visit and the last preoperative visit 21.2 lbs, or 9.08% of initial actual body weight. The patient met the BMI-criteria for bariatric surgery based on the BMI on initial presentation. The patient should not be penalized for achieving such weight loss because ?it is not sustainable long-term without surgical intervention and it was achieved in preparation for bariatric surgery ?under my direction and based on my published research ([email or web address]) ?that a 10% preoperative weight loss improves long-term weight loss after surgery and reduces perioperative complications.? Insurance carriers such as [facility] have endorsed my recommendations ?and have included in their policies criteria to include a 10% preoperative weight loss requirement. PROCEDURE: Esophago-gastroscopy, laparoscopic sleeve gastrectomy and laparoscopic gastropexy INDICATIONS: This is a 45 year-old female who was electively scheduled for laparoscopic, possibly open sleeve gastrectomy. The risks and complications of the procedure were discussed with the patient in advance, particularly the possibility of ; pulmonary embolism; staple line leak; bleeding; GERD; cardiac, pulmonary, or renal complications; as well as long-term problems such as insufficient weight loss, vitamin deficiency, strictures, or ulcers. The patient understood all the risks, and was in agreement to proceed with surgery. DESCRIPTION OF PROCEDURE: After informed consent was obtained from the patient, the patient was given preoperative antibiotics, and was transferred to the operating room. After successful induction of general anesthesia, pneumatic compressive devices were placed on both lower extremities. An upper endoscopy was performed next. The oropharynx and esophagus appeared to be within normal limits. There was no diaphragmatic hernia presentI. The stomach was entered. Then after all fluid and air were suctioned and the stomach was fully decompressed, the scope was withdrawn and secured in the mid esophagus. The patient was then prepped and draped in the usual sterile manner, and abdominal access was established at the right upper quadrant with the Sivakumar technique. A 12 mm blunt port was inserted, and the abdomen was insufflated with CO2 to a pressure of 15 mmHg. Under direct visualization, additional ports were placed, specifically two 5 mm Versi-step ports to the left upper quadrant, and a 5 mm Versi-Step port to the right upper quadrant. 1% lidocaine plain was used to infiltrate all port sites as well as all fascia defects. Following that, the patient was placed in a steep reverse Trendelenburg position. An additional 5 mm port was placed to the right flank for the Mediflex retractor that was used to retract the left lobe of the liver. The gastro-esophageal fat pad was opened with the ultrasonic device (Thunderbeat, Olympus) and the anterior esophagus and hiatus were exposed. The angle of His was opened with the ultrasonic device the fundus of the stomach from any diaphragmatic and splenic attachments. I then opened the gastrocolic ligament between the transverse colon and the greater curvature of the stomach with the ultrasonic device to enter the lesser sac and facilitate the ligation of the short gastric vessels. I started at a mid-point along the greater curvature and using the Thunderbeat, all short gastric vessels were divided all the way to the angle of His until the left laurel was completely dissected at its entirety. I then divided the gastro-colic ligament distally to a distance of about 3-4 cm proximal to the esophagus. The stomach was then divided transversely with one Endo FLACA-45 purple, one FLACA-45 orange and four FLACA-60 articulating orange loads using the AEON stapler and loads. Every effort was made that the gastric sleeve had a tubular shape and an even caliber throughout. Once the sleeve resection was completed, the staple line of the gastric sleeve was reinforced with Hemoclips. The resected stomach was retrieved without difficulty from the Sivakumar port. A gastropexy was then performed in order to prevent postoperative GERD and partial gastric volvulus. Several interrupted 2.0 Surgidac sutures were placed between the sleeve's staple line and the previously divided greater omentum and gastro-colic ligament using the Endo-Stitch device. ?An upper endoscopy was performed. There was no narrowing at the GE junction. The scope was easily advanced all the way to the pylorus which was clearly visualized. There was no narrowing anywhere and the sleeve's caliber was even throughout. The sleeve's staple line was inspected and there was no evidence of ischemia, bleeding or dehiscence. At that point the gastroscope was withdrawn from the patient?s mouth while we were decompressing the bowel and the stomach from any remaining air. I looked into the lesser sac to see how the sleeve was situating and it was situating well. There was no bleeding from the staple line, spleen, or short gastric vessels. The Mediflex retractor was removed, and the undersurface of the liver was inspected and there was no bleeding. The patient was placed in supine position. I closed the fascial defect of the 12 mm port site with a figure of eight #1 Polysorb suture. Then 100 cc 0.25 % Marcaine plain with 10 mg of Dexamethasone were used to infiltrate the fascial closure as well as all skin incisions. At this point, the abdomen was deflated, all ports were removed under direct vision, and no bleeding was noted from any of the port sites. The skin incisions were irrigated with saline and were closed with 4-0 absorbable monofilament sutures. Steri-Strips and OpSites were used to cover all incisions. The patient was extubated and was transferred in stable condition to the recovery room for further care. I was present and performed all perera parts of the procedure. Ms. Pope was the delivery assistant and Mr. Valentine the second. There were no residents to assist with this case. Avi Rachel MD, PhD, FACS Surgeon: Jimmy Rachel MD Anesthesia: GETA, local and other (TAP block) Was an Associate Agent Insurance Sales used for this Procedure?: No Associate Agent Insurance Sales: Carlos Valentine Estimated blood loss (mL): 10 Urine output (mL): 0 (No Patton to record) Pathology: other (Stomach) Condition: stable Disposition: PACU
--- NOTE | 2021-02-22 18:07 | PM.DS ---
DS: Providers Provider Date of Service: 02/23/21 Date of admission: 02/22/21 12:07 Primary care physician: Johana Hudson MD DS: Diagnosis Discharge Diagnosis (1) Obesity: Status: Acute (2) BMI 38.0-38.9,adult: Status: Acute (3) Sleep apnea with use of continuous positive airway pressure (CPAP): Status: Acute (4) Hypertension: Status: Acute (5) Asthma: Status: Acute (6) DJD (degenerative joint disease): Status: Acute (7) Gout: Status: Acute (8) Steatosis, liver: Status: Acute (9) GERD (gastroesophageal reflux disease): Status: Acute (10) Migraines: Status: Acute DS: Summary Hospital Course Hospital Course: ADMITTING DIAGNOSIS: morbid obesity, asthma, htn, migraine, gout ? DISCHARGE DIAGNOSIS: same, s/p laparoscopic sleeve gastrectomy ? PAST SURGICAL HISTORY: hysterectomy, cholecystectomy ? PROCEDURE: upper endoscopy, laparoscopic sleeve gastrectomy ? DISCHARGE SUMMARY: ? History of Present Illness: ? The patient is a?45 year-old woman with a BMI of?45 kg/m2 and associated co-morbidities as described above. The patient had extensive work-up,lost?18lbs preoperatively and was electively scheduled for laparoscopic, possible open sleeve gastrectomy and gastropexy. Risks and complications of the surgery were discussed with the patient in advance, particularly the possibility of , pulmonary embolism, anastomotic leak, bleeding, bowel injury, GERD, cardiac, renal or pulmonary complications. The patient understood all the risks and was in agreement with the surgical plan. ? Hospital Course: ? The patient underwent an uneventful laparoscopic sleeve gastrectomy with gastropexy on the day of admission. Postoperatively, the patient was transferred to the surgical floor. The patient received IV Acetaminophen and IV dilaudid for pain control. Patient was started on bariatric phase 1 diet POD #0. On postoperative day one, the patient was feeling well without nausea, vomiting, fevers, or tachycardia. The patient had some mild incisional pain and the abdomen was soft. ? On the morning of postoperative day one, the patient was continued on 1 ounce of water or ice every half hour. During the day, the patient did fairly well, having some incisional pain, but able to ambulate adequately and to tolerate liquids well. ? Since the patient is doing well, we decided that the patient was ready to be discharged. The patient was given instructions to follow-up with me next week and to call my office for any fever over 101, persistent abdominal pain, nausea, vomiting, GERD, symptoms of DVT such as calf tenderness, or leg swelling, or pulmonary embolism such as chest pain or shortness of breath. The patient was also instructed to drink 40-60 ounces of liquids per day using the 1-ounce cups. The patient had been given prescriptions for Tylenol for pain, Zofran prn for nausea, and pantoprazole and carafate previously. The patient was encouraged to ambulate and use the incentive spirometer. The patient was allowed to shower, but no baths, and encouraged to stay active at home. All of these instructions were given to the patient personally. All questions were answered and the patient understood all instructions, the instructions were also given to the patient in print. Time Spent with Patient Time attestation: Total time spent providing and/or coordinating discharge services: Discharge coordination time: Less than 30 minutes Quality: Stroke Does the patient have a stroke diagnosis?: No Physical Exam Vital Signs: Vital Signs: Last Vital Signs Temp 97.3 F 02/22/21 18:00 Pulse 95 02/22/21 18:05 Resp 17 02/22/21 18:05 BP 131/70 02/22/21 18:05 Pulse Ox 97 02/22/21 18:05 Body Mass Index 38.9 DS: Data Data Completed and Pending Pending studies at discharge: Pending at discharge 02/22/21 17:35 Surgical [PTH] Routine Labs on day of discharge: Laboratory Results - last 24 hr 02/22/21 11:59 COVID-19 ([facility]) Negative COVID-19 Clin Com See Note Discharge Plan Discharge Anticipated Discharge Date/Time: 02/23/21 12:00 Patient Disposition: Home, Self-Care Discharge Diagnosis: s/p sleeve gastrectomy Referrals: Johana Hudson MD [Primary Care Provider] - 1 Week Discharge Medications: Continued sumatriptan succinate [Imitrex] 50 mg tablet 50 mg PO Q2-4H PRN (Reason: Migraine Headache) RF: 0 verapamil 120 mg capsule,ext rel. pellets 24 hr 120 mg PO DAILY RF: 0 triamcinolone acetonide 0.5 % cream 1 appl topical DAILY RF: 0 albuterol sulfate [ProAir HFA] 90 mcg/actuation HFA aerosol inhaler 2 puff inhalation Q6H PRN (Reason: Wheezing) RF: 0 Flovent Diskus 50 mcg/actuation blister with device 1 inh inhalation BID RF: 0 montelukast [Singulair] 10 mg tablet 10 mg PO DAILY RF: 0 pantoprazole 40 mg tablet,delayed release (DR/EC) 40 mg PO DAILY Qty: 30 RF: 2 sucralfate 100 mg/mL suspension 10 ml PO BID Qty: 400 RF: 2 ondansetron HCl [Zofran] 4 mg tablet 4 mg PO Q12H Qty: 20 RF: 0 Held Emgality Pen 120 mg/mL pen injector subcut PRN (Reason: Migraine Headache) RF: 0 Hold Instructions: discuss with Dr Rachel Discontinued polyethylene glycol 3350 [Miralax] 17 gram/dose powder 17 g PO .COMPLEX Qty: 238 RF: 0 diclofenac sodium 75 mg tablet,delayed release (DR/EC) 75 mg PO BID RF: 0 cholecalciferol (vitamin D3) 125 mcg (5,000 unit) capsule 125 mcg PO DAILY Qty: 30 RF: 2 Discharge Orders: Discharge Order (Routine); Ordered 02/23/21 Ordered By: Jimmy Rachel Diet: other Activity on Discharge: No heavy lifting Stand Alone Forms: Patient Portal Discharge page Care Plan Goals: weight loss Health Concerns: obesity Plan of Treatment: No tub baths, sex or returning to work until discussed at first post op appointment. No exercise, alcohol, tobacco or illegal drug use. Continue to use incentive spirometer hourly while awake. Walk in home for 5- 10 minutes every 2 hours during the first week. Continue phase 3 diet until first post op appointment. Follow all instructions in the bariatric handbook and call with any questions.Discharge Instructions 1. Please call your doctor or come back to the emergency room should any new symptoms arise. 2. You will receive a courtesy call from [facility] 24-48 hours after discharge. 3. Activity: abstain from alcohol, practice limited stair climbing, no bending, no driving, no exercise, no illicit substances, no lifting, no sex, no tub bath, no work. 4. Diet: continue as discussed with Dr. Rachel. 5. Dressing Change/Wound Care: Your incision is covered by surgical glue. If the area is tender, you may apply an ice pack for short intervals (no more than 20 minutes on, followed by at least 20 minutes off). Do not apply heat. Do not use creams, lotions, or topical antibiotics unless instructed to do so by your surgeon. These can cause infection or allergic reaction. 6. Call your doctor if: - Your temperature exceeds 101.5 F - You experience excessive pain or swelling - You have an unexpected reaction to medication - You have excessive bleeding - You experience continued vomiting/nausea - Your incision begins to separate - Your incision shows signs of infection such as increased redness, swelling, excessive pain, heat, or drainage (light blood or clear fluid is normal) 7. General instructions: No lifting greater than 5 lbs for the next 4 weeks[address] driving within 24 hours of taking narcotic pain medications. If you do not move your bowels in the next 2 days, please take milk of magnesia over the counter. Please follow the post op diet and do not advance your diet until you are seen in the office in about 2 weeks. Please walk around your home every hour or two to prevent blood clots from forming in your legs. You do not need to wake from sleeping to walk. Please sleep in a bed or couch to prevent kinking at the hips and knees. Please take your incentive spirometer (your lung high school combination teacher) home with you and use it for the next few days to prevent pneumonias. You may shower, no hot tubs, baths or swimming pools. Please call the office with any questions or concerns such as increasing abdominal pain, fever, chills, shortness of breath, chest pain, leg pain or swelling, or redness or drainage from your incisions. Please stay on stage 3 diet which includes sugar free clear liquids such as ice pops and jello and broth and crystal light. Avoid all carbonation. Please drink 3 protein shakes with at least 25-30 grams of protein daily or 3 of the Celebrate 4:1 shakes which can be purchased in our office. The Celebrate shakes have all of the bariatric vitamins you need if you consume these shakes. If you are drinking other protein shakes, you will need to purchase the Celebrate multivitamins and calcium that we provide in the office (they will provide all the vitamins you need). Please make sure you are consuming at least 40-60 ounces of water in addition to your 3 protein shakes daily. Do not hesitate to contact the office with any questions at . The patient's medical history has been reviewed and they are considered low risk for post op DVT and therefore DVT prophylaxis is not considered necessary. Travel after surgery was reviewed. The patient has not disclosed any travel plans during the first 30 days after surgery and they have been advised that within the first 30 days after surgery any bus, plane, train or car travel over 2 hours in duration is contraindicated due to the possibility of developing blood clots from immobility. Any travel, needs to include periods of ambulation of 10 minutes in duration every 2 hours.? The patient was instructed to discuss any plans for travel during this period with their bariatric surgeon. Assessment: stable, s/p sleeve gastrectomy
[2021-02-22] MEDS: ondansetron HCL 4 MG/2 ML VIAL IVPUSH ×2 (18:38→20:42)
[2021-02-22 18:39] LABS: Hematocrit 40.3 % (37-47); Hemoglobin 13.6 g/dl (12.0-16.0)
[2021-02-22] MEDS: Famotidine/PF 20 MG/2 ML VIAL IVPUSH ×2 (18:45→20:42)
[2021-02-22 18:50] LABS: Anion Gap 14 (12-20); Blood Urea Nitrogen 7 mg/dL (9-16); Calcium 8.6 mg/dL (8.4-10.2); Carbon Dioxide 23 mmol/L (22-29); Chloride 105 mmol/L (96-108); Creatinine Clr Calc Pharmacy 96.5; Estimated Glomerular Filt Rate > 60; Glucose Random 142 mg/dL (60-115); Potassium 3.6 mmol/L (3.3-5.1); Sodium 138 mmol/L (135-145)
[2021-02-22] MEDS: Metoclopramide HCl 10 MG/2 ML VIAL IVPUSH (18:59)
[2021-02-22] MEDS: VerapamiL HCL SR 120 MG TABLET.ER PO (20:42)
[2021-02-22] MEDS: Famotidine 20 MG TABLET PO (20:42)
[2021-02-22] MEDS: ceFAZolin Sodium/Dextrose,Iso 2 GM/50 ML PIGGYBACK IV (20:42)
[2021-02-22] MEDS: Lactated Ringers 1,000 ML 125 ML IVCONT (21:32)
[2021-02-23] VITALS: BP 155/93; PULSE 98; RESP 17; TEMP 36.6; O2SAT 98
[2021-02-23] MEDS: HYDROmorphone HCl 0.5 MG/0.5 ML SYRINGE 0.25 MG IVPUSH (00:02)
[2021-02-23 01:24] VITALS: PULSE 68; RESP 16; O2SAT 97
[2021-02-23 03:59] VITALS: BP 111/40; PULSE 69; RESP 17; TEMP 36.2; O2SAT 99
[2021-02-23 05:51] LABS: MANUAL DIFF FLAG NO
[2021-02-23 05:53] LABS: Basophils Percent Auto 0.1 % (0-2); Hematocrit 40.5 % (37-47); Hemoglobin 13.5 g/dl (12.0-16.0); Imm Gran Abs Auto 0.05 X10*3/uL (0.00-0.03); Imm Gran Pct Auto 0.4 % (0.0-0.4); Lymphocytes Absolute Auto 1.6 X10*3/uL (1.2-4.9); Lymphocytes Percent Auto 11.8 % (20-40); Mean Corpuscular HGB Conc 33.3 g/dl (31.0-35.0); Mean Corpuscular Hemoglobin 29.7 pg (27.0-33.0); Mean Platelet Volume 9.9 fL (9.4-12.3); Monocytes Absolute Auto 0.3 X10*3/uL (0.1-1.2); Monocytes Percent Auto 1.9 % (2-11); Neutrophils Absolute Auto 11.8 X10*3/uL (2.0-8.3); Neutrophils Percent Auto 85.8 % (45-73); Platelet Count 279 X10*3/uL (160-400); Red Blood Count 4.55 X10*6/uL (4.20-5.50); Red Cell Distribution Width 13.1 % (11.0-16.0); White Blood Count 13.7 X10*3/uL (4.8-10.8)
[2021-02-23 06:14] LABS: Anion Gap 15 (12-20); Blood Urea Nitrogen 6 mg/dL (9-16); Carbon Dioxide 23 mmol/L (22-29); Chloride 107 mmol/L (96-108); Estimated Glomerular Filt Rate > 60; Glucose Random 134 mg/dL (60-115); Potassium 4.6 mmol/L (3.3-5.1); Sodium 140 mmol/L (135-145)
[2021-02-23] MEDS: Lactated Ringers 1,000 ML 125 ML IVCONT (06:26)
[2021-02-23] MEDS: ondansetron HCL 4 MG/2 ML VIAL IVPUSH (06:41)
[2021-02-23 07:41] VITALS: BP 122/72; PULSE 84; RESP 17; TEMP 36.1; O2SAT 95
[2021-02-23] MEDS: Famotidine/PF 20 MG/2 ML VIAL IVPUSH (08:40)
[2021-02-23] MEDS: Montelukast Sodium 10 MG TABLET PO (08:40)
--- NOTE | 2021-02-23 10:21 | MHC.CM.PN ---
EMR REVIEWED, PT ADMITTED S/P LAP SLEEVE GASTRECTOMY, PT REPORTS SHE LIVES ALONE, IS INDEPENDENT W/ALL CARE, USES A CPAP AND NO OTHER DME AND NO HOME SERVICES, PT VERIFIES PCP MARIAN KATE AND HCP DTR TILA PEREZ [phone], COPY HAS BEEN REQUESTED. D/C PLAN: HOME TODAY SELF-CARE W/OUTPT FOLLOW-UP W/SURGEON, DTR FOR TRANSPORT
--- NOTE | 2021-02-23 13:39 | HO.POSTANES ---
Post Anesthesia Evaluation Post Anesthesia Evaluation Vital Signs: Vital Signs Temp Pulse Resp BP Pulse Ox 02/23/21 07:41 97.0 F 84 17 122/72 95 02/23/21 03:59 97.1 F 69 17 111/40 L 99 Anesthesia: General Endotracheal-GETA Mental Status: Awake Pain Control: Satisfactory Nausea/Vomiting: None Hydration: Adequate Anesthesia-Related Issues: No Anes. Related Issues
== END 2021-02-23 10:14 | disposition home or self-care (01) | DRG 403 ==
LOC: HO.SSSA 18:07 → HO.S3 18:15
PROVIDERS: Physician Assistant Surgical; Admitting Provider Surgery; PCP Internal Medicine; Visit Provider Surgery
PROC: 0DB64Z3 Excision of Stomach, Percutaneous Endoscopic Approach, Vertical (ICD-10-PCS; CPT 43845; principal; 2021-02-22 13:20)
DX: E66.01 Morbid (severe) obesity due to excess calories (principal); K76.0 Fatty (change of) liver, not elsewhere classified; G43.909 Migraine, unspecified, not intractable, without status migrainosus; G47.30 Sleep apnea, unspecified; Z68.38 Body mass index [BMI] 38.0-38.9, adult; Z99.89 Dependence on other enabling machines and devices; M10.9 Gout, unspecified; J45.909 Unspecified asthma, uncomplicated; I10 Essential (primary) hypertension; M19.90 Unspecified osteoarthritis, unspecified site; Z20.822 Contact with and (suspected) exposure to COVID-19; Z87.891 Personal history of nicotine dependence; Z79.51 Long term (current) use of inhaled steroids; Z79.899 Other long term (current) drug therapy
CPT/HCPCS: 36415; 80048; 80053; 80061; 83036; 83525; 84443; 85014; 85018; 85025; 85610; 85730; 86140; 86850; 86900; 86901; 87635; 88307; 88342; 94660; 99024; A4649; J0131; J0690; J1100; J1170; J2250; J2370; J2405; J2550; J2765; J3010

== ENCOUNTER → 2021-03-01 11:16 | Outpatient (BNVA) | payer OTHER, SELFPAY | PROVIDERS: PCP Internal Medicine; Visit Provider Surgery | DX: E66.9 Obesity, unspecified (principal); Z68.37 Body mass index [BMI] 37.0-37.9, adult | CPT/HCPCS: 99212 ==

== ENCOUNTER → 2021-03-08 13:08 | Outpatient (BNVA) | payer OTHER, SELFPAY | PROVIDERS: PCP Internal Medicine; Visit Provider Physician Assistant Surgical ==

== ENCOUNTER → 2021-03-15 11:34 | Outpatient (BNVA) | payer OTHER, SELFPAY | PROVIDERS: PCP Internal Medicine; Visit Provider Physician Assistant Surgical ==

== ENCOUNTER → 2021-03-22 13:47 | Outpatient (BNVA) | payer OTHER, SELFPAY | PROVIDERS: PCP Internal Medicine; Visit Provider Physician Assistant Surgical ==

== ENCOUNTER → 2021-03-29 12:33 | Outpatient (BNVA) | payer OTHER, SELFPAY | PROVIDERS: PCP Internal Medicine; Visit Provider Physician Assistant Surgical ==

== ENCOUNTER → 2021-04-03 08:03 | Outpatient (BNVA) | payer OTHER, SELFPAY | PROVIDERS: PCP Internal Medicine; Visit Provider Physician Assistant | DX: Z98.84 Bariatric surgery status (principal) | CPT/HCPCS: 99212 ==

== ENCOUNTER → 2021-04-05 14:21 | Outpatient (BNVA) | payer OTHER, SELFPAY | PROVIDERS: PCP Internal Medicine; Visit Provider Physician Assistant Surgical ==

== ENCOUNTER → 2021-04-06 07:58 | Outpatient (BNVA) | payer OTHER, SELFPAY | PROVIDERS: PCP Internal Medicine; Visit Provider Dietitian, Registered ==

== ENCOUNTER → 2021-04-12 12:43 | Outpatient (BNVA) | payer OTHER, SELFPAY | PROVIDERS: PCP Internal Medicine; Visit Provider Physician Assistant ==

== ENCOUNTER → 2021-04-13 08:15 | Outpatient (BNVA) | payer OTHER, SELFPAY | PROVIDERS: PCP Internal Medicine; Referring Provider Surgery; Visit Provider Dietitian, Registered | DX: E66.9 Obesity, unspecified (principal); Z68.35 Body mass index [BMI] 35.0-35.9, adult | CPT/HCPCS: 97803 ==

== ENCOUNTER → 2021-04-26 12:20 | Outpatient (BNVA) | payer OTHER, SELFPAY | PROVIDERS: PCP Internal Medicine; Visit Provider Physician Assistant Surgical ==

== ENCOUNTER → 2021-04-28 08:17 | Outpatient (BNVA) | payer OTHER, SELFPAY | PROVIDERS: PCP Internal Medicine; Visit Provider Physician Assistant ==

== ENCOUNTER → 2021-07-04 13:59 | Outpatient (BNVA) | payer OTHER, SELFPAY | PROVIDERS: PCP Internal Medicine; Referring Provider Internal Medicine; Visit Provider Physician Assistant ==

== ENCOUNTER → 2021-08-08 15:26 | Outpatient (BNVA) | payer OTHER, SELFPAY | PROVIDERS: PCP Internal Medicine; Referring Provider Internal Medicine; Visit Provider Physician Assistant | DX: E66.9 Obesity, unspecified (principal); Z98.84 Bariatric surgery status; Z68.30 Body mass index [BMI] 30.0-30.9, adult | CPT/HCPCS: 99212 ==

== ENCOUNTER 2021-09-13 10:02 | Outpatient (REF) | payer OTHER, SELFPAY ==
[2021-09-13 13:25] LABS: MANUAL DIFF FLAG NO
[2021-09-13 13:33] LABS: Basophils Percent Auto 0.3 % (0-2); Eosinophils Percent Auto 0.4 % (0-4); Hematocrit 40.9 % (37.0-47.0); Hemoglobin 13.2 g/dl (12.0-16.0); Imm Gran Abs Auto 0.02 X10*3/uL (0.00-0.03); Imm Gran Pct Auto 0.3 % (0.0-0.4); Lymphocytes Absolute Auto 1.5 X10*3/uL (1.2-4.9); Lymphocytes Percent Auto 21.3 % (20-40); Mean Corpuscular HGB Conc 32.3 g/dl (31.0-35.0); Mean Corpuscular Hemoglobin 30.1 pg (27.0-33.0); Mean Corpuscular Volume 93.2 fL (80.0-98.0); Mean Platelet Volume 10.9 fL (9.4-12.3); Monocytes Absolute Auto 0.6 X10*3/uL (0.1-1.2); Neutrophils Absolute Auto 4.8 x10*3/uL (2.0-8.3); Neutrophils Percent Auto 69.7 % (45-73); Platelet Count 280 X10*3/uL (160-400); Red Blood Count 4.39 X10*6/uL (4.20-5.50); Red Cell Distribution Width 14.1 % (11.0-16.0); White Blood Count 6.9 X10*3/uL (4.8-10.8)
[2021-09-13 13:49] LABS: Estimated Average Glucose 103 mg/dL; Hemoglobin A1c % 5.2 %
[2021-09-13 13:53] LABS: Alanine Aminotransferase 17 U/L (0-31); Albumin Level 4.1 g/dL (3.5-5.0); Alkaline Phosphatase 67 U/L (39-117); Anion Gap 11 (12-20); Aspartate Amino Transferase 17 U/L (5-31); Bilirubin Total 0.2 mg/dL (0.0-1.0); Blood Urea Nitrogen 14 mg/dL (9-16); C Reactive Protein 0.16 mg/dL (< or = 0.50); Calcium 9.3 mg/dL (8.4-10.2); Carbon Dioxide 26 mmol/L (22-29); Chloride 107 mmol/L (96-108); Cholesterol 167 mg/dL; Estimated Glomerular Filt Rate > 60; Glucose Random 80 mg/dL (60-115); HDL Cholesterol 55 mg/dL; Iron 127 mcg/dL (30-160); LDL Cholesterol Calculated 97 mg/dl; Percent Iron Saturation 44 % (15-50); Potassium 4.2 mmol/L (3.3-5.1); Sodium 140 mmol/L (135-145); Total Iron Binding Capacity 289 mcg/dL (228-428); Total Protein 7.2 g/dL (6.5-8.0); Triglycerides 78 mg/dL; Unsaturated Iron Binding 162 ug/dL
[2021-09-13 14:01] LABS: Ferritin 203 ng/mL (10-250); Insulin 4 uU/mL (2-29); TSH reflex Free T4 0.54 uIU/mL (0.32-4.0); Vitamin D 25-OH Total 31.6 ng/mL (>30)
[2021-09-13 14:17] LABS: Folate 14.1 ng/mL (> or = 4.0); Vitamin B12 461 pg/mL (200-900)
[2021-09-15 12:26] LABS: Calcium (PTHI) 9.1 mg/dL (8.6-10.2); PTHI 49 pg/mL (16-77)
[2021-09-17 01:13] LABS: Zinc 61 mcg/dL (60-130)
[2021-09-18 17:11] LABS: Vitamin A 33 mcg/dL (38-98)
[2021-09-19 12:05] LABS: Vitamin B1 13 nmol/L (8-30)
== END 2021-09-13 10:03 | disposition home or self-care (01) ==
LOC: HO.10HDL 10:02
PROVIDERS: PCP Internal Medicine; Visit Provider Physician Assistant
DX: Z00.00 Encounter for general adult medical examination without abnormal findings (principal); E66.9 Obesity, unspecified; F32.9 Major depressive disorder, single episode, unspecified; F41.0 Panic disorder [episodic paroxysmal anxiety]; G47.33 Obstructive sleep apnea (adult) (pediatric); I10 Essential (primary) hypertension; Z98.84 Bariatric surgery status
CPT/HCPCS: 36415; 80053; 80061; 82306; 82607; 82728; 82746; 83036; 83525; 83540; 83970; 84425; 84443; 84590; 84630; 85025; 86140

== ENCOUNTER 2022-03-08 10:30 | Outpatient (REF) | payer OTHER, SELFPAY ==
[2022-03-08 13:40] LABS: MANUAL DIFF FLAG NO
[2022-03-08 13:42] LABS: Basophils Percent Auto 0.3 % (0-2); Eosinophils Percent Auto 0.5 % (0-4); Hematocrit 40.6 % (37.0-47.0); Hemoglobin 13.3 g/dl (12.0-16.0); Imm Gran Abs Auto 0.02 X10*3/uL (0.00-0.03); Imm Gran Pct Auto 0.2 % (0.0-0.4); Lymphocytes Absolute Auto 2.4 X10*3/uL (1.2-4.9); Lymphocytes Percent Auto 27.3 % (20-40); Mean Corpuscular HGB Conc 32.8 g/dl (31.0-35.0); Mean Corpuscular Hemoglobin 29.6 pg (27.0-33.0); Mean Corpuscular Volume 90.2 fL (80.0-98.0); Mean Platelet Volume 10.7 fL (9.4-12.3); Monocytes Absolute Auto 0.5 X10*3/uL (0.1-1.2); Monocytes Percent Auto 5.5 % (2-11); Neutrophils Absolute Auto 5.7 x10*3/uL (2.0-8.3); Neutrophils Percent Auto 66.2 % (45-73); Platelet Count 248 X10*3/uL (160-400); Red Cell Distribution Width 12.8 % (11.0-16.0); White Blood Count 8.6 X10*3/uL (4.8-10.8)
[2022-03-08 13:58] LABS: Alanine Aminotransferase 18 U/L (0-31); Albumin Level 4.2 g/dL (3.5-5.0); Alkaline Phosphatase 71 U/L (39-117); Anion Gap 14 (12-20); Aspartate Amino Transferase 17 U/L (5-31); Bilirubin Total 0.3 mg/dL (0.0-1.0); Blood Urea Nitrogen 8 mg/dL (9-16); Calcium 9.4 mg/dL (8.4-10.2); Carbon Dioxide 29 mmol/L (22-29); Chloride 102 mmol/L (96-108); Cholesterol 188 mg/dL; Estimated Glomerular Filt Rate > 60; Glucose Fasting 88 mg/dL (60-99); HDL Cholesterol 76 mg/dL; LDL Cholesterol Calculated 99 mg/dl; Potassium 4.8 mmol/L (3.3-5.1); Sodium 140 mmol/L (135-145); Total Protein 7.3 g/dL (6.5-8.0); Triglycerides 68 mg/dL
[2022-03-08 14:20] LABS: Ferritin 249 ng/mL (10-250)
[2022-03-08 14:42] LABS: Vitamin B12 481 pg/mL (200-900)
== END 2022-03-08 10:31 | disposition home or self-care (01) ==
LOC: HO.10HDL 10:30
PROVIDERS: Visit Provider Internal Medicine
DX: Z00.00 Encounter for general adult medical examination without abnormal findings (principal); F32.9 Major depressive disorder, single episode, unspecified; G47.33 Obstructive sleep apnea (adult) (pediatric); J45.909 Unspecified asthma, uncomplicated; Z98.84 Bariatric surgery status
CPT/HCPCS: 36415; 80053; 80061; 82607; 82728; 85025

== ENCOUNTER 2022-03-09 10:37 | Outpatient (REF) | payer OTHER, SELFPAY ==
--- NOTE | ~2022-03-09 | MM_ITS ---
EXAMINATION: MM SCREENING DIGITAL BREAST TOMOSYNTHESIS, BILATERAL CLINICAL INFORMATION: Screening. Asymptomatic. The lifetime risk of breast cancer based on the Tyrer-Cuzick Model is 9%. COMPARISON: Mammography: 08/05/2020; outside mammography 06/14/2017 ([facility]). TECHNIQUE: Digital breast tomosynthesis is performed in both the craniocaudal and mediolateral oblique views along with computer-aided detection (CAD). Synthesized 2D images are generated from the tomosynthesis. Additional right cleavage view is provided. FINDINGS: There are scattered areas of fibroglandular density (ACR BI-RADS breast composition Category b). There are no significant masses, abnormal calcifications, or other abnormalities. Parenchymal pattern is similar to prior studies. There is no developing density or architectural abnormality. The axilla and skin contours are unremarkable. No significant changes. MM/MM tomosynthesis screening BI IMPRESSION: No mammographic evidence of malignancy. ASSESSMENT: BI-RADS 1: Negative RECOMMENDATION: Routine annual mammography screening. This patient's information was entered into a reminder system with a target due date for their next mammogram.
== END 2022-03-09 10:38 | disposition home or self-care (01) ==
LOC: HO.MAMMO 10:37
PROVIDERS: PCP Internal Medicine; Visit Provider Internal Medicine
DX: Z12.31 Encounter for screening mammogram for malignant neoplasm of breast (principal)
CPT/HCPCS: 77063; 77067

== ENCOUNTER → 2022-07-09 13:53 | Outpatient (BNVA) | payer OTHER, SELFPAY | PROVIDERS: PCP Internal Medicine; Referring Provider Internal Medicine; Visit Provider Physician Assistant Surgical | DX: Z13.89 Encounter for screening for other disorder (principal) ==

== ENCOUNTER → 2022-08-03 14:10 | Outpatient (BNVA) | payer OTHER, SELFPAY | PROVIDERS: PCP Internal Medicine; Visit Provider Physician Assistant Surgical | DX: E66.3 Overweight (principal); L98.7 Excessive and redundant skin and subcutaneous tissue; Z98.84 Bariatric surgery status; Z68.26 Body mass index [BMI] 26.0-26.9, adult | CPT/HCPCS: 99212 ==

== ENCOUNTER 2022-09-03 08:41 | Outpatient (REF) | payer OTHER, SELFPAY ==
[2022-09-03 10:22] LABS: MANUAL DIFF FLAG NO
[2022-09-03 10:30] LABS: Basophils Percent Auto 0.6 % (0-2); Eosinophils Absolute Auto 0.1 X10*3/uL (0.0-0.4); Hematocrit 38.7 % (37.0-47.0); Hemoglobin 12.6 g/dl (12.0-16.0); Imm Gran Abs Auto 0.03 X10*3/uL (0.00-0.03); Imm Gran Pct Auto 0.4 % (0.0-0.4); Lymphocytes Absolute Auto 1.8 X10*3/uL (1.2-4.9); Lymphocytes Percent Auto 26.6 % (20-40); Mean Corpuscular HGB Conc 32.6 g/dl (31.0-35.0); Mean Corpuscular Hemoglobin 29.7 pg (27.0-33.0); Mean Corpuscular Volume 91.3 fL (80.0-98.0); Mean Platelet Volume 10.2 fL (9.4-12.3); Monocytes Absolute Auto 0.5 X10*3/uL (0.1-1.2); Monocytes Percent Auto 6.7 % (2-11); Neutrophils Absolute Auto 4.4 x10*3/uL (2.0-8.3); Neutrophils Percent Auto 64.7 % (45-73); Platelet Count 261 X10*3/uL (160-400); Red Blood Count 4.24 X10*6/uL (4.20-5.50); White Blood Count 6.7 X10*3/uL (4.8-10.8)
[2022-09-03 10:58] LABS: Alanine Aminotransferase 15 U/L (0-31); Alkaline Phosphatase 65 U/L (39-117); Anion Gap 10 (12-20); Aspartate Amino Transferase 17 U/L (5-31); Bilirubin Total 0.7 mg/dL (0.0-1.0); Blood Urea Nitrogen 11 mg/dL (9-16); C Reactive Protein < 0.10 mg/dL (< or = 0.50); Calcium 9.3 mg/dL (8.4-10.2); Carbon Dioxide 31 mmol/L (22-29); Chloride 107 mmol/L (96-108); Cholesterol 186 mg/dL; Estimated Glomerular Filt Rate > 60; Glucose Random 97 mg/dL (60-115); HDL Cholesterol 89 mg/dL; Iron 147 mcg/dL (30-160); LDL Cholesterol Calculated 88 mg/dl; Percent Iron Saturation 55 % (15-50); Potassium 4.3 mmol/L (3.3-5.1); Sodium 144 mmol/L (135-145); Total Iron Binding Capacity 265 mcg/dL (228-428); Total Protein 6.9 g/dL (6.5-8.0); Triglycerides 47 mg/dL; Unsaturated Iron Binding 118 ug/dL
[2022-09-03 11:01] LABS: Estimated Average Glucose 100 mg/dL; Hemoglobin A1c % 5.1 %
[2022-09-03 11:23] LABS: Ferritin 205 ng/mL (10-250); TSH reflex Free T4 0.54 uIU/mL (0.32-4.0); Vitamin B12 568 pg/mL (200-900); Vitamin D 25-OH Total 22.4 ng/mL (>30)
[2022-09-03 11:41] LABS: Insulin 5 uU/mL (2-29)
[2022-09-05 13:49] LABS: Calcium (PTHI) 9.5 mg/dL (8.6-10.2); PTHI 80 pg/mL (16-77)
[2022-09-06 05:38] LABS: Zinc 70 mcg/dL (60-130)
[2022-09-09 00:49] LABS: Vitamin A 35 mcg/dL (38-98)
[2022-09-10 13:17] LABS: Vitamin B1 7 nmol/L (8-30)
== END 2022-09-03 08:42 | disposition home or self-care (01) ==
LOC: HO.10HDL 08:41
PROVIDERS: Visit Provider Physician Assistant Surgical
DX: Z98.84 Bariatric surgery status (principal)
CPT/HCPCS: 36415; 80053; 80061; 82306; 82607; 82728; 82746; 83036; 83525; 83540; 83970; 84425; 84443; 84590; 84630; 85025; 86140

== ENCOUNTER → 2022-09-06 10:15 | Outpatient (BNVA) | payer OTHER, SELFPAY | PROVIDERS: PCP Internal Medicine; Visit Provider Physician Assistant Surgical | DX: E66.3 Overweight (principal); L98.7 Excessive and redundant skin and subcutaneous tissue; R21 Rash and other nonspecific skin eruption; Z68.26 Body mass index [BMI] 26.0-26.9, adult; Z90.49 Acquired absence of other specified parts of digestive tract; Z90.3 Acquired absence of stomach [part of] | CPT/HCPCS: 99212 ==

== ENCOUNTER → 2022-10-12 16:04 | Outpatient (BNVA) | payer OTHER, SELFPAY | PROVIDERS: PCP Internal Medicine; Visit Provider Physician Assistant Surgical | DX: L98.7 Excessive and redundant skin and subcutaneous tissue (principal); E66.3 Overweight; Z98.84 Bariatric surgery status; Z68.27 Body mass index [BMI] 27.0-27.9, adult | CPT/HCPCS: 99212 ==

== ENCOUNTER → 2022-10-23 13:20 | Outpatient (BNVA) | payer OTHER, SELFPAY | PROVIDERS: PCP Internal Medicine; Referring Provider Internal Medicine; Visit Provider Surgery | DX: R59.0 Localized enlarged lymph nodes (principal) | CPT/HCPCS: 99202 ==

== ENCOUNTER 2022-10-25 11:19 | Day surgery (SDC) | payer OTHER, SELFPAY ==
--- NOTE | 2022-10-24 12:00 | MHC.SHP ---
Pre-Procedural Eval Section A Date of Service: 10/25/22 The patient is an INPATIENT: No Changes since office visit: No Cold of Flu in the past 2 weeks, No New Medical Problems, No Changes in Medication and No Patient answered all questions The History & Physical has been completed within 30 days and I have reviewed it.: Yes Section B Chief Complaint: adenopathy Allergies: Allergies Allergy/AdvReac Type Severity Reaction Status Date / Time cortisone Allergy Severe Anaphylaxis Verified 10/23/22 13:26 topiramate [Topamax] Allergy Severe Anaphylaxis Verified 10/23/22 13:26 Plan I have reviewed the history and physical and performed a pertinent physical examination on my patient. No changes have occurred unless specified. Time Spent With Patient Time: Total time managing care of this patient today ____ minutes.
--- NOTE | 2022-10-24 12:10 | P.CONAN_ITS ---
Documented by User: Radha Carnes NP 10/29/22 15:15 HPI - Anesthesia Eval Consult details Narrative: 46yo F for Right Wide Excision Supraclavicular Lymph Node PMFSH Active Problems Active Problems: All Active Problems (Updated 08/03/22 @ 15:16 by JOSHUA Villanueva) Cervical adenopathy (Acute) Excess skin (Acute) Overweight (Acute) Obesity (Acute) S/P laparoscopic sleeve gastrectomy (Acute) Migraines (Acute) GERD (gastroesophageal reflux disease) (Acute) Steatosis, liver (Acute) Abnormal EKG (Acute) Vitamin A deficiency (Acute) Vitamin D deficiency (Acute) Vitamin B12 deficiency (Acute) Adjustment disorder, unspecified (Acute) Obesity (Acute) BMI 39.0-39.9,adult (Acute) BMI 38.0-38.9,adult (Acute) BMI 37.0-37.9, adult (Acute) Sleep apnea with use of continuous positive airway pressure (CPAP) (Acute) Gout (Acute) DJD (degenerative joint disease) (Acute) Asthma (Acute) Hypertension (Acute) Morbid obesity (Acute) Past Medical History Medical History Arthritis Asthma COVID-19 vaccine series completed Diaphragmatic hernia DJD (degenerative joint disease) Gout Hypertension Migraines Morbid obesity Plantar fasciitis of right foot Sleep apnea with use of continuous positive airway pressure (CPAP) Steatosis, liver Family History Family History Mother Fibromyalgia Hypertension Cancer Father Diabetes Hypertension Heart disease Brother No problems noted. Sister No problems noted. Sister No problems noted. Sister No problems noted. Son No problems noted. Daughter No problems noted. Family history of problems with anesthesia: No Surgical History Surgical History (Updated 10/23/22 @ 14:01 by Dio Norman MD) Bariatric surgery status (~2020) History of total hysterectomy Hx of cholecystectomy History of Problems with Anesthesia: No Social History Social History Are you a primary complex care nurse practitioner to a significant other at home: No Do you presently have visiting nurse or other home services: No Alcohol intake: current Alcohol intake frequency: holidays/special occasions only Patient Tobacco Use Status: Former Tobacco user Quit Date: 7 yrs ago Tobacco use type: Cigarette service: No Current occupational status: unemployed Meds Allergies Allergy/AdvReac Type Severity Reaction Status Date / Time cortisone Allergy Severe Anaphylaxis Verified 10/23/22 13:26 topiramate [Topamax] Allergy Severe Anaphylaxis Verified 10/23/22 13:26 Active Medications: Current Medications Cefazolin Sodium/Dextrose (Ancef) 2 gm in 50 mls @ 100 mls/hr IV PREOP ONE Stop: 10/24/22 12:28 Home Medications Medication Instructions Recorded Confirmed Last Taken Type albuterol sulfate 90 mcg/actuation 2 puff inhalation Q6H PRN Wheezing 07/01/20 10/12/22 Unknown History aerosol inhaler (ProAir HFA) fluticasone propionate 50 1 inh inhalation BID 07/01/20 10/12/22 Unknown History mcg/actuation blister powder for inhalation (Flovent Diskus) galcanezumab-gnlm 120 mg/mL mg subcut PRN Migraine Headache 07/01/20 10/12/22 02/14/21 History subcutaneous pen injector (Emgality Pen) montelukast 10 mg tablet 10 mg PO DAILY 07/01/20 10/12/22 Unknown History (Singulair) sumatriptan succinate 50 mg tablet 50 mg PO Q2-4H PRN Migraine 07/01/20 10/12/22 02/14/21 History (Imitrex) Headache triamcinolone acetonide 0.5 % 1 appl topical DAILY 07/01/20 10/12/22 Unknown History topical cream verapamil 120 mg 24 hr 180 mg PO DAILY 08/08/21 10/12/22 Unknown History capsule,extended release Exam Exam Date and Time: October 24, 2022 1210 Pertinent Lab Results Pertinent Lab Results: Laboratory Tests 09/03/22 09/03/22 08:46 08:46 WBC 6.7 Hgb 12.6 Hct 38.7 Plt Count 261 Sodium 144 Potassium 4.3 Chloride 107 Carbon Dioxide 31 H BUN 11 Creatinine 0.76 Narrative Narrative: ECHO 2020 Conclusions: - The left ventricular systolic function is normal.? The visually estimated ejection fraction is between 55-60%. ? - No obvious valvular pathology seen on this study.? Assessment and Plan Assessment Anesthesia Assessment: Chart Reviewed Final Anesthetic Review Family History of Problems with Anesthesia: No History of Problems with Anesthesia: No Documented by User: Neal Paredes MD 10/31/22 08:29 [facility] Past Medical History Medical History Arthritis Asthma COVID-19 vaccine series completed Diaphragmatic hernia DJD (degenerative joint disease) Gout Hypertension Migraines Morbid obesity Plantar fasciitis of right foot Sleep apnea with use of continuous positive airway pressure (CPAP) Steatosis, liver Family History Family History Mother Fibromyalgia Hypertension Cancer Father Diabetes Hypertension Heart disease Brother No problems noted. Sister No problems noted. Sister No problems noted. Sister No problems noted. Son No problems noted. Daughter No problems noted. Surgical History Surgical History (Updated 10/23/22 @ 14:01 by Dio Norman MD) Bariatric surgery status (~2020) History of total hysterectomy Hx of cholecystectomy Social History Social History Are you a primary complex care nurse practitioner to a significant other at home: No Do you presently have visiting nurse or other home services: No Alcohol intake: current Alcohol intake frequency: holidays/special occasions only Patient Tobacco Use Status: Former Tobacco user Quit Date: 7 yrs ago Tobacco use type: Cigarette service: No Current occupational status: unemployed Meds Allergies Allergy/AdvReac Type Severity Reaction Status Date / Time cortisone Allergy Severe Anaphylaxis Verified 10/23/22 13:26 topiramate [Topamax] Allergy Severe Anaphylaxis Verified 10/23/22 13:26 Home Medications Medication Instructions Recorded Confirmed Last Taken Type albuterol sulfate 90 mcg/actuation 2 puff inhalation Q6H PRN Wheezing 07/01/20 10/12/22 Unknown History aerosol inhaler (ProAir HFA) fluticasone propionate 50 1 inh inhalation BID 07/01/20 10/12/22 Unknown History mcg/actuation blister powder for inhalation (Flovent Diskus) galcanezumab-gnlm 120 mg/mL mg subcut PRN Migraine Headache 07/01/20 10/12/22 02/14/21 History subcutaneous pen injector (Emgality Pen) montelukast 10 mg tablet 10 mg PO DAILY 07/01/20 10/12/22 Unknown History (Singulair) sumatriptan succinate 50 mg tablet 50 mg PO Q2-4H PRN Migraine 07/01/20 10/12/22 02/14/21 History (Imitrex) Headache triamcinolone acetonide 0.5 % 1 appl topical DAILY 07/01/20 10/12/22 Unknown History topical cream verapamil 120 mg 24 hr 180 mg PO DAILY 08/08/21 10/12/22 Unknown History capsule,extended release Exam Airway Mallampati Class: II TM Dist: >3cm Neck ROM: Full Loose/Missing/Broken Teeth: No Assessment and Plan Final Anesthetic Review ASA Class: III Final Preanesthetic Review: No Changes in Pt Med Stat, Meds/Allgs Chart Reviewed, Consent Obtained/Reviewed and Anes Risks/Benef Reviewed Patient Risk: Low Procedure Risk: Low Anesthetic Plan Anesthetic Plan: MAC: Disposition: Standard PACU
[2022-10-25 12:49] VITALS: BMI 27.1
[2022-10-25] MEDS: Lactated Ringers 1,000 ML 100 ML IVCONT (12:59)
[2022-10-25 13:08] VITALS: BP 104/67; PULSE 56; RESP 18; TEMP 36.7; O2SAT 98
--- NOTE | 2022-10-25 14:35 | PC.NURSE ---
author verified with surgeon he is only working on one lymph node, supraclavicular, as noted on consent. Patient states she has two areas. Surgeon confirmed only the one as stated on surgical consent.
--- NOTE | 2022-10-25 15:05 | W.PM.OPN ---
Operative Note Operative Note Date of Service: 10/25/22 Narrative: Preoperative diagnosis: [] suspicious enlarging right supraclavicular lymph node Postop diagnosis: [] same Procedure [] excisional biopsy right supraclavicular lymph node Surgeon: [] Emerson Ballast Regulator Operator: [] destiny Maldonado Type of Anesthesia: [] MAC Indication for surgery: [] approximate 2 x 3 cm enlarged fish flesh quality right supraclavicular lymph node sent to pathology as fresh specimen. Findings: [] Patient brought to the operating room, placed on operative table supine position, after adequate level of MAC anesthesia was induced the incision area infiltrated with a combination of 0.5% Marcaine 1% lidocaine, after, the right supraclavicular chest and cervical area were prepped and draped in usual sterile fashion. Using a transverse incision over the supraclavicular lymph node and in question, this carried down through skin, subcutaneous tissue, and cervical fascia. Lymph node was identified and circumferentially dissected out using combination of blunt and electro Bovie dissection. Specimen as noted above was sent as fresh specimen pathology. Wounds irrigated, secured hemostasis, and closed in the following manner; cervical fascia was reapproximated using interrupted 3-0 Vicryl sutures. Interrupted inverted subdermal 3-0 Vicryl sutures followed by running subcuticular 4-0 Vicryl sutures were placed. Steri-Strips and sterile dressings were applied. Sponge, needle, instrument counts reported correct. Patient tolerated the procedure well and emerged anesthesia stable condition. EBL minimal
[2022-10-25 15:17] VITALS: BP 118/65; PULSE 77; RESP 16; TEMP 36.4; O2SAT 98
[2022-10-25 15:32] VITALS: BP 117/64; PULSE 55; RESP 14; O2SAT 99
[2022-10-25 15:47] VITALS: BP 107/71; PULSE 64; RESP 14; TEMP 36.3; O2SAT 99
== END 2022-10-25 16:11 | disposition home or self-care (01) ==
PROVIDERS: PCP Internal Medicine; Visit Provider Surgery
PROC: (CPT 38500; principal; 2022-10-25 14:00)
DX: R59.0 Localized enlarged lymph nodes (principal); G47.33 Obstructive sleep apnea (adult) (pediatric); I10 Essential (primary) hypertension; M10.9 Gout, unspecified; E66.01 Morbid (severe) obesity due to excess calories; Z68.27 Body mass index [BMI] 27.0-27.9, adult; Z98.84 Bariatric surgery status; J45.909 Unspecified asthma, uncomplicated; K76.0 Fatty (change of) liver, not elsewhere classified; K44.9 Diaphragmatic hernia without obstruction or gangrene; G43.909 Migraine, unspecified, not intractable, without status migrainosus; Z79.51 Long term (current) use of inhaled steroids; Z79.899 Other long term (current) drug therapy; Z88.8 Allergy status to other drugs, medicaments and biological substances; Z87.891 Personal history of nicotine dependence; Z90.49 Acquired absence of other specified parts of digestive tract
CPT/HCPCS: 38510; 36415; 88184; 88185; 88305; 88341; 88342; 88360; 88365; J0690; J2250

== ENCOUNTER → 2022-11-05 10:59 | Outpatient (BNVA) | payer OTHER, SELFPAY | PROVIDERS: PCP Internal Medicine; Referring Provider Internal Medicine; Visit Provider Surgery | DX: C85.90 Non-Hodgkin lymphoma, unspecified, unspecified site (principal); R59.0 Localized enlarged lymph nodes | CPT/HCPCS: 99212 ==

== ENCOUNTER 2024-06-17 08:32 | Outpatient (REF) | payer OTHER, SELFPAY ==
--- OUTSIDE RECORDS SUMMARY | 2024-06-17 09:12 | XMS_ITS | Clinical Summary ---
Author Organization [facility] Address [address] [place] [address] Care Team Providers Care Stockroom Selector Name Role Phone Unavailable Primary Care Provider Unavailabl e Social History Tobacco Use Types Packs/Day Years Used Date Smoking Tobacco: Never Assessed Sex and Gender Information Value Date Recorded Sex Assigned at Not on file Gender Identity Not on file Sexual Orientation Not on file Plan of Treatment Health Maintenance Due Date Last Done Comments Hepatitis B Vaccines (1 of 3 - 3-dose series) 1974 Hepatitis C Screening 1974 COVID-19 Vaccine (#1) 05/20/1975 Depression Screening 1986 Preventative Health Evaluation 1992 DTap / Tdap / Td (1 - Tdap) 1993 Cervical Cancer Screening (P ap Smear) 11/19/1995 Colon Cancer Screening (Colonoscopy) 11/19/2019 Influenza Vaccine (#1) 2024 Pneumococcal Vaccine Aged Out No long er eligible based on patient's age to complete this topic RSV Ped < 20 months Aged Out No longe r eligible based on patient's age to complete this topic
--- OUTSIDE RECORDS SUMMARY | 2024-06-17 09:12 | XMS_ITS | Clinical Summary ---
Author Organization [employer] [facility] it Address [address] [place] [address] Care Team Providers Care Casino Cashier Name Role Phone Unavailable Primary Care Provider Unavailabl e Social History Tobacco Use Types Packs/Day Years Used Date Smoking Tobacco: Never Assessed Sex and Gender Information Value Date Recorded Sex Assigned at Not on file Gender Identity Not on file Sexual Orientation Not on file Plan of Treatment Health Maintenance Due Date Last Done Comments Breast Cancer Screening 1974 DTaP,Tdap,and Td Vaccines (1 - Tdap) 1993 Hepatitis B Vaccines (1 of 3 - 19+ 3-dose series) 1993 Cervical Cancer Screening: P ap Smear 11/19/1995 Colorectal Cancer Screening: Colonoscopy 06/25/2023 Depression Screening 06/25/2023 HIV Screening 06/25/2023 Hepatitis C Screening 06/25/2023 Social Influencers of Health Screening 06/25/2023 COVID-19 Vaccine ( - 2023-2 5 season) 2024 Influenza Vaccine (#1) 2024 HIB Vaccines Aged Out No longer eligi ble based on patient's age to complete this topic HPV Vaccines Aged Out No longer eligi ble based on patient's age to complete this topic Hepatitis A Vaccines Aged Out No long er eligible based on patient's age to complete this topic IPV Vaccines Aged Out No longer eligi ble based on patient's age to complete this topic MMR Vaccines Aged Out No longer eligi ble based on patient's age to complete this topic Meningococcal ACWY Vaccine Aged Out N o longer eligible based on patient's age to complete this topic Pneumococcal Vaccine: Pediat rics (0 to 5 Years) and At-Risk Patients (6 to 64 Years) Aged Out No longer eligible b ased on patient's age to complete this topic RSV Immunization Patients Un rolando 20 months Aged Out No longer eligible b ased on patient's age to complete this topic Varicella Vaccines Aged Out No longer eligible based on patient's age to complete this topic Advance Directives Documents on File Type Date Recorded Patient Marble Machine Operator Expl anation Health Care Decision (hx) 03/18/2020 AD HERNANDEZ DIRECTIVE Health Care Decision (hx) 03/18/2020 AD HERNANDEZ DIRECTIVE Health Care Decision (hx) 03/18/2020 AD HERNANDEZ DIRECTIVE
[2024-06-17 10:20] LABS: MANUAL DIFF FLAG NO
[2024-06-17 10:27] LABS: Basophils Absolute Auto 0.1 X10*3/uL (0.0-0.2); Basophils Percent Auto 0.5 % (0-2); Eosinophils Percent Auto 0.4 % (0-4); Hematocrit 41.1 % (37.0-47.0); Hemoglobin 13.5 g/dl (12.0-16.0); Imm Gran Abs Auto 0.02 X10*3/uL (0.00-0.03); Imm Gran Pct Auto 0.2 % (0.0-0.4); Lymphocytes Absolute Auto 2.2 X10*3/uL (1.2-4.9); Lymphocytes Percent Auto 24.3 % (20-40); Mean Corpuscular HGB Conc 32.8 g/dl (31.0-35.0); Mean Corpuscular Hemoglobin 30.3 pg (27.0-33.0); Mean Corpuscular Volume 92.4 fL (80.0-98.0); Mean Platelet Volume 9.4 fL (9.4-12.3); Monocytes Absolute Auto 0.6 X10*3/uL (0.1-1.2); Monocytes Percent Auto 6.4 % (2-11); Neutrophils Absolute Auto 6.3 x10*3/uL (2.0-8.3); Neutrophils Percent Auto 68.2 % (45-73); Platelet Count 308 X10*3/uL (160-400); Red Blood Count 4.45 X10*6/uL (4.20-5.50); Red Cell Distribution Width 13.4 % (11.0-16.0); White Blood Count 9.2 X10*3/uL (4.8-10.8)
[2024-06-17 10:44] LABS: Alanine Aminotransferase 23 U/L (0-31); Albumin Level 4.4 g/dL (3.5-5.0); Alkaline Phosphatase 58 U/L (39-117); Anion Gap 9 (12-20); Aspartate Amino Transferase 23 U/L (5-31); Bilirubin Total 0.6 mg/dL (0.0-1.0); Blood Urea Nitrogen 11 mg/dL (9-16); Calcium 9.6 mg/dL (8.4-10.2); Carbon Dioxide 30 mmol/L (22-29); Chloride 107 mmol/L (96-108); Cholesterol 200 mg/dL (<200); Estimated Glomerular Filt Rate > 60; Glucose Random 93 mg/dL (60-115); HDL Cholesterol 91 mg/dL (>40); LDL Cholesterol Calculated 96 mg/dL (<100); Potassium 4.7 mmol/L (3.3-5.1); Sodium 141 mmol/L (135-145); Total Protein 8.2 g/dL (6.5-8.0); Triglycerides 67 mg/dL (<150)
[2024-06-17 11:16] LABS: Folate 8.6 ng/mL (> or = 4.0); Vitamin B12 820 pg/mL (200-900)
== END 2024-06-17 08:33 | disposition home or self-care (01) ==
LOC: HO.10HDL 08:32
PROVIDERS: Visit Provider Internal Medicine
DX: Z00.01 Encounter for general adult medical examination with abnormal findings (principal); F32.2 Major depressive disorder, single episode, severe without psychotic features; G43.109 Migraine with aura, not intractable, without status migrainosus; N30.00 Acute cystitis without hematuria; R05.3 Chronic cough; Z90.710 Acquired absence of both cervix and uterus; Z98.84 Bariatric surgery status
CPT/HCPCS: 36415; 80053; 80061; 82607; 82746; 85025

== ENCOUNTER 2024-10-29 14:53 | Outpatient (AMB) | payer OTHER, SELFPAY ==
[2024-10-29 15:00] VITALS: BMI 29.6
--- NOTE | 2024-10-29 15:00 | A.OFFVIS_ITS ---
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 Pt states Left LE is worse than Right LE. States she stands at work and her leg pain has increased over last couple months. Pt states she has a large VV on Left LE w/ burning, aching, warmth, itching. 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 [] patient presents for painful varicose veins. Complaints include pain, swelling of lower extremities, cramping, fatigue, and heaviness of the lower extremities. It has been affecting their daily activities including walking, working, and standing. It is noted more so in the left leg, but does affect the right leg. She is a former smoker, having quit >10y ago. She is not a diabetic. She works appx 10-12h on her feet daily. She states she has had these complaints for over 1y; however, it has worsened over the last couple of months. She states that, at night, the discoloration, swelling, and pain worsens. Patient denies any previous venous surgery or injections. Patient denies any history of DVT/ PE. Patient denies any history of phlebitis. Trial of compression includes - elevation, which helps. She is unable to wear compression socks, due to increased pain. They now present for vascular evaluation regarding their varicose veins. [facility] Medical History Migraines Diaphragmatic hernia Steatosis, liver COVID-19 vaccine series completed Plantar fasciitis of right foot Arthritis Sleep apnea with use of continuous positive airway pressure (CPAP) Gout DJD (degenerative joint disease) Asthma Hypertension Morbid obesity Surgical History Bariatric surgery status (~2020) History of total hysterectomy Hx of cholecystectomy Family History Mother Fibromyalgia Hypertension Cancer Father Diabetes Hypertension Heart disease Brother No problems noted. Sister No problems noted. Sister No problems noted. Sister No problems noted. Son No problems noted. Daughter No problems noted. Social History Are you a primary primary care nurse practitioner to a significant other at home: No Do you presently have visiting nurse or other home services: No Alcohol intake: current Alcohol intake frequency: holidays/special occasions only Patient Tobacco Use Status: Former Tobacco user Tobacco use type: Cigarette service: No Current occupational status: unemployed Review of Systems Const Reports as per HPI and Denies weakness ENT Reports Normal hearing present and Denies dizziness Card Reports as per HPI, Denies chest pain, Denies chest pain at rest, Denies chest pain with activity, Denies dyspnea and Denies dyspnea on exertion Resp Reports as per HPI, Denies cough, Denies dyspnea and Denies dyspnea on exertion GI Reports as per HPI, Denies abdominal pain, Denies nausea and Denies vomiting Musc Denies numbness Skin/Breast Reports as per HPI, Denies erythema and Denies wounds Neuro Reports Normal hearing present, Denies dizziness, Denies numbness, Denies Sensory deficit (Neuro) and Denies weakness Psych Reports no additional complaints Endo Reports no additional complaints Physical Exam Vital Signs: BMI result Body Mass Index 29.6 Const General: healthy appearing and no acute distress Orientation/consciousness: patient oriented x3 HEENT Head: Yes normal to inspection Ears: hearing grossly normal bilaterally Mouth: Normal oral and palatal mucosa present Resp Effort & Inspection: normal respiratory effort and able to speak in complete sentences Auscultation: clear to auscultation bilaterally Cardio Jugular venous distension: no JVD Rate: regular rate Rhythm: regular rhythm Heart sounds: S1 normal heart sound present and S2 normal heart sound present Bruits: no abdominal aortic bruits, no carotid bruits, no femoral bruits and no renal bruits Peripheral pulses: Peripheral pulses 2+ throughout GI Inspection: Yes normal to inspection Palpation (GI): No Abdominal aortic bruit present Skin General skin exam: no rashes or lesions noted Wounds: no wounds Hair: normal Neuro General: patient oriented x3 Cranial nerves: Yes Normal hearing present Cognition (Neuro): normal cognition Gait exam (Neuro): Normal gait present Motor exam (neuro): 5/5 motor strength present throughout Sensory Exam: No Sensory deficit (Neuro) Extrem Other: Bilateral lower extremities: +1 edema. Palpable DP pulses. Slight discoloration noted around the ankles. Left lower extremity: telangiectases noted around the pretibial and ankle areas CEAP: C - 4 E - primary A - superficial P - reflux General: Yes normal to inspection, Yes full ROM, Yes capillary refill normal and Yes normal gait Assessment & Plan Assessment & Plan (1) Varicose veins of both lower extremities with inflammation: Code(s): I83.11 - Varicose veins of right lower extremity with inflammation; I83.12 - Varicose veins of left lower extremity with inflammation Category: Medical Plan: Kimber is presenting today on a referral from her PCP for concerns of worsening pain and discomfort from VV. In short, the patient has evidence of venous insufficiency. I have discussed the pathophysiology with the patient. In addition I have provided informational material regarding venous disease to the patient. We have discussed conservative measures including compression, elevation, and exercise. We did not provide the handout to her today; she states she has worn compression socks and she has difficulty with them, because they cause her more pain. I have taken the liberty of ordering venous insufficiency testing with the patient. They will follow up with me after testing. The patient had an opportunity to ask questions regarding the treatment plan. All questions were answered. Imaging studies, laboratory studies and physical exam results were discussed and reviewed in detail. No major barriers to understanding were identified. The patient expressed understanding and agreemen t with the above treatment plan. The patient is aware they should contact our office by phone for worsening of the current condition or the appearance of new symptoms. Thank you for allowing me to participate in the vascular care of this patient. If you have any questions or concerns regarding the treatment for the above condition please do not hesitate to contact me. The office telephone contact is [phone]. This note is constructed using voice recognition software. While every effort has been made to ensure accuracy, branch account executive errors may have been included. Thank you for allowing me to participate in the care of your patient. Yours sincerely, JOSHUA Soriano Orders: Orders US venous duplex LE BI 1 Week I83.11 - Varicose veins of right lower extremity with inflammation, I83.12 - Varicose veins of left lower extremity with inflammation Coding Level of Care Code New Pt Level 4 (81362) Diagnoses Varicose veins of both lower extremities with inflammation I83.11; I83.12
--- OUTSIDE RECORDS SUMMARY | 2024-10-29 17:34 | XMS_ITS | Clinical Summary ---
Author Organization [employer] [facility] it Address [address] [place] [address] Care Team Providers Care Chemical Pathologist Name Role Phone Unavailable Primary Care Provider Unavailabl e Social History Tobacco Use Types Packs/Day Years Used Date Smoking Tobacco: Never Assessed Comments Unknown Sex and Gender Information Value Date Recorded Sex Assigned at Not on file Legal Sex Female 5:00 AM EST Gender Identity Not on file Sexual Orientation [...] Influencers of Health Screening 06/25/2023 COVID-19 Vaccine (2023-2 5 season) 2024 Influenza Vaccine (Season Ended) 2025 HIB Vaccines Aged Out No longer eligi [...] patient's age to complete this topic Meningococcal B Vaccine Aged Out No l onger eligible based on patient's age to complete [...] Documents on File Type Date Recorded Patient Pooling Operator Expl anation Health Care Decision (hx) 03/18/2020 AD HERNANDEZ DIRECTIVE Health Care Decision (hx) 03/18/2020 AD HERNANDEZ DIRECTIVE Health Care Decision (hx) 03/18/2020 AD HERNANDEZ DIRECTIVE
== END 2024-10-29 15:54 | disposition home or self-care (01) ==
LOC: HO.HVS 14:54
PROVIDERS: PCP Internal Medicine; Visit Provider Physician Assistant Surgical
DX: I83.11 Varicose veins of right lower extremity with inflammation (principal); I83.12 Varicose veins of left lower extremity with inflammation
CPT/HCPCS: 99204

== ENCOUNTER → 2024-10-29 14:53 | Outpatient (BNVA) | payer OTHER, SELFPAY | PROVIDERS: PCP Internal Medicine; Visit Provider Physician Assistant Surgical ==

== ENCOUNTER 2024-11-26 09:28 | Outpatient (REF) | payer OTHER, SELFPAY ==
--- NOTE | ~2024-11-26 | US_ITS ---
EXAMINATION: US LOWER EXTREMITY VENOUS (REFLUX EXAM), BILATERAL CLINICAL INFORMATION: Varices. COMPARISON: None. TECHNIQUE: Color flow triplex imaging and compression Doppler was performed to evaluate both the deep and the superficial systems bilaterally. To evaluate the superficial system, the examination was performed in the upright position. Color-flow Doppler ultrasound and compression ultrasound were utilized. In addition, maneuvers were utilized to demonstrate reflux. FINDINGS: 1. DEEP VENOUS ULTRASOUND OF THE RIGHT LOWER EXTREMITY: Common Femoral Vein: Compressible, normal respiratory variation and augmented flow. Femoral Vein: Compressible, normal color flow and augmentation. Popliteal Vein: Compressible, normal augmentation. Deep Reflux: There is no evidence of reflux in the deep system in either the common femoral vein, superficial femoral or the popliteal vein. There is a 4.4 x 1.2 x 3.5 cm lobulated anechoic abnormality without flow on color Doppler interrogation centered in the popliteal fossa. 2. SUPERFICIAL ULTRASOUND WITH DOPPLER OF RIGHT LOWER EXTREMITY: GREAT SAPHENOUS VEIN: Saphenofemoral Junction: 0.7 cm; Reflux: 0 ms Proximal Thigh: 0.8 cm; Reflux: 0 ms Mid Thigh: 0.4 cm; Reflux: 0 ms Distal Thigh: 0.4 cm; Reflux: 0 ms At Knee: 0.3 cm; Reflux: 0 ms Proximal Calf: cm; Reflux: 0 ms Mid Calf: 0.2 cm; Reflux: 0 ms Distal Calf: 0.3 cm; Reflux: 0 ms DUPLICATED MEDIAL GREAT SAPHENOUS VEIN: Diameter: None imaged Reflux: NA DUPLICATED LATERAL GREAT SAPHENOUS VEIN: Diameter: 0.2-0.4 cm. Reflux: NA SMALL SAPHENOUS VEIN: Saphenopopliteal Junction: 0.1 cm; Reflux: 0 ms Proximal: 0.1 cm; Reflux: 0 ms Distal: 0.3 cm; Reflux: 0 ms VEIN OF GIACOMINI: Size: 0.3 cm. Reflux: NA PERFORATORS: Location: Small saphenous vein proximal segment. Great saphenous vein from the proximal to distal calf. Size: 0.1-0.3 cm. Reflux: NA VARICOSITIES: Location: Great saphenous vein mid thigh. Size: 0.3 cm. Reflux: NA 3. DEEP VENOUS ULTRASOUND OF THE LEFT LOWER EXTREMITY: Common Femoral Vein: Compressible, normal respiratory variation and augmented flow. Femoral Vein: Compressible, normal color flow and augmentation. Popliteal Vein: Compressible, normal augmentation. Deep Reflux: There is no evidence of reflux in the deep system in either the common femoral vein, superficial femoral or the popliteal vein. There is no evidence of a Cadena's cyst. 4. SUPERFICIAL ULTRASOUND WITH DOPPLER OF LEFT LOWER EXTREMITY: GREAT SAPHENOUS VEIN: Saphenofemoral Junction: 0.7 cm; Reflux: 0 ms Proximal Thigh: 0.7 cm; Reflux: 0 ms Mid Thigh: 0.4 cm; Reflux: 0 ms Distal Thigh: 0.3 cm; Reflux: 0 ms At Knee: 0.4 cm; Reflux: 0 ms Proximal Calf: 0.3 cm; Reflux: 0 ms Mid Calf: 0.2 cm; Reflux: 0 ms Distal Calf: 0.2 cm; Reflux: 0 ms DUPLICATED MEDIAL GREAT SAPHENOUS VEIN: Diameter: None imaged Reflux: NA DUPLICATED LATERAL GREAT SAPHENOUS VEIN: Diameter: 0.3-0.4 cm. Reflux: NA SMALL SAPHENOUS VEIN: Saphenopopliteal Junction: 0.5 cm; Reflux: 0 ms Proximal: 0.3 cm; Reflux: 0 ms Distal: 0.1 cm; Reflux: 0 ms VEIN OF GIACOMINI: Size: 0.2 cm. Reflux: NA PERFORATORS: Location: Great saphenous vein from the proximal thigh to the mid calf. Size: 0.2-0.3 cm. Reflux: NA VARICOSITIES: Location: None Imaged Size: NA Reflux: NA US/US venous insuf bilat IMPRESSION: Right: No venous insufficiency. Perforators and varices without reflux. 4.4 cm lobulated popliteal cyst. Left: No venous insufficiency. Perforators without reflux. Electronically signed by: Reji Gee MD 11/26/2024 10:59 AM EDT
--- OUTSIDE RECORDS SUMMARY | 2024-11-26 09:47 | XMS_ITS | Clinical Summary ---
Author Organization [facility] Address [address] [place] [address] Care Team Providers Care Hydro Sprayer Operator Name Role Phone Unavailable Primary Care Provider [...] Smear) 11/19/1995 Colon Cancer Screening (Colonoscopy) 11/19/2019 Breast Cancer Screening (Mammogram) 2024 Shingrix-Zoster Vaccine (1 of 2) 2024 Influenza Vaccine (Season Ended) 2025 Pneumococcal Vaccine Aged Out No long er eligible based on patient's age to complete this topic RSV Ped < 20 months Aged Out No longe r eligible based on patient's age to complete this topic
--- OUTSIDE RECORDS SUMMARY | 2024-11-26 09:47 | XMS_ITS | Clinical Summary ---
Author Organization [email or web address] [facility] Address [address] [place] [address] Care Team Providers Care Denture Waxer Name Role Phone Unavailable Primary Care Provider [...] Vaccine ( - 2023-2 5 season) 2024 Pneumococcal Vaccine: 50+ Ye ars (1 of 1 - PCV) 2024 Zoster Vaccines (1 of 2) 2024 Influenza Vaccine (Season Ended) 2025 HIB [...] Documents on File Type Date Recorded Patient Combustion Analyst Expl anation Health Care Decision (hx) 03/18/2020 AD HERNANDEZ DIRECTIVE Health Care Decision (hx) 03/18/2020 AD HERNANDEZ DIRECTIVE Health Care Decision (hx) 03/18/2020 AD HERNANDEZ DIRECTIVE
== END 2024-11-26 09:29 | disposition home or self-care (01) ==
LOC: HO.US 09:28
PROVIDERS: PCP Internal Medicine; Visit Provider Physician Assistant Surgical
DX: I83.11 Varicose veins of right lower extremity with inflammation (principal); I83.12 Varicose veins of left lower extremity with inflammation
CPT/HCPCS: 93970

== ENCOUNTER → 2024-11-26 09:31 | Outpatient (BNV) | payer OTHER, SELFPAY | PROVIDERS: PCP Internal Medicine; Visit Provider Radiology Diagnostic Radiology | DX: M71.21 Synovial cyst of popliteal space [Baker], right knee (principal) | CPT/HCPCS: 93970 ==

== ENCOUNTER 2024-12-15 08:35 | Outpatient (AMB) | payer OTHER, SELFPAY ==
--- NOTE | 2024-12-15 08:53 | A.OFFVIS_ITS ---
Vital Signs 12/15/24 08:54 Height 5 ft 2 in Weight 162 lb BMI 29.6 Intake Visit Reasons: follow up s/p US 11/26/24 Intake Note: US follow up 11/26/24. Pt states Left LE is worse than the right LE. States she has large VV on Left LE that is causing burning, aching, warmth and itching. Does work on her feet Certified Medical Transcriptionist Required: No Accompanied by: Self / Same As Patient Allergies cortisone Allergy (Severe, Verified 12/15/24 08:56) Anaphylaxis topiramate (Topamax) Allergy (Severe, Verified 12/15/24 08:56) Anaphylaxis HPI HPI follow up s/p US 11/26/24: Details: The patient is a 49-year-old female presenting for follow-up regarding venous insufficiency. She reports that a vein test was conducted and returned normal results, with no major veins appearing stretched. However, she experiences discomfort from a prominent spider telangiectasias. The patient describes intermittent episodes where her legs feel painful and swollen, particularly at night, and the veins appear enlarged and discolored. She denies any back pain or diabetes, and recent blood tests and imaging were normal. The patient has been managing the leg pain with Tylenol, which provides some relief, but she is advised to try Advil for its anti-inflammatory effects. She reports standing all day, which exacerbates the pain, and has been advised to wear compression stockings despite discomfort. The patient has a history of knee surgery two years ago, which may be contributing to her musculoskeletal pain. [facility] Medical History Migraines Diaphragmatic hernia Steatosis, liver COVID-19 vaccine series completed Plantar fasciitis of right foot Arthritis Sleep apnea with use of continuous positive airway pressure (CPAP) Gout DJD (degenerative joint disease) Asthma Hypertension Morbid obesity Surgical History Bariatric surgery status (~2020) History of total hysterectomy Hx of cholecystectomy Family History Mother Fibromyalgia Hypertension Cancer Father Diabetes Hypertension Heart disease Brother No problems noted. Sister No problems noted. Sister No problems noted. Sister No problems noted. Son No problems noted. Daughter No problems noted. Social History Are you a primary career services representative to a significant other at home: No Do you presently have visiting nurse or other home services: No Alcohol intake: current Alcohol intake frequency: holidays/special occasions only Patient Tobacco Use Status: Former Tobacco user Tobacco use type: Cigarette service: No Current occupational status: unemployed Review of Systems Const All systems reviewed & are unremarkable except as noted in HPI and below Reports no additional complaints ENT Reports Normal hearing present Card Denies chest pain, Denies chest pain at rest, Denies chest pain with activity and Denies pedal edema Resp Denies cough GI Denies abdominal pain Musc Denies abnormal gait, Denies muscle cramps and Denies radiating pain into limb Skin/Breast Denies skin ulcer and Denies wounds Neuro Reports Normal hearing present and Denies abnormal gait Psych Reports no additional complaints Physical Exam Vital Signs: BMI result Body Mass Index 29.6 Const General: cooperative, healthy appearing and comfortable Orientation/consciousness: oriented to person, oriented to place and oriented to time HEENT Head: Yes normal to inspection Neck Neck: Yes normal visual inspection Carotids: no bruits Chest Chest palpation & inspection: normal inspection of the chest Resp Effort & Inspection: normal respiratory effort and able to speak in complete sentences Auscultation: clear to auscultation bilaterally, no crackles, no rales, no rhonchi and no wheezes Cardio Rate: regular rate Rhythm: regular rhythm Heart sounds: S1 normal heart sound present and S2 normal heart sound present Bruits: no carotid bruits Peripheral pulses: Peripheral pulses 2+ throughout GI Inspection: Yes normal to inspection Skin Other: Multiple spider telangiectasias Wounds: no wounds Hair: normal Neuro General: oriented to person, oriented to place and oriented to time Cranial nerves: Yes CN's II-XII intact bilaterally and Yes Normal hearing present Cognition (Neuro): normal cognition Motor exam (neuro): 5/5 motor strength present throughout Extrem Other: venous exam: No significant superficial varicosities or spider telangiectasias, minimal edema General: No clubbing, No cyanosis and No edema Psych Appearance: grossly normal Mental Status: mental status grossly normal Speech and movement: Normal speech and movement present Results Reviewed Results Reviewed: Brief summary of venous insufficiency testing is as follows: right great saphenous vein: negative right small saphenous vein: negative right accessory vein: none present left great saphenous vein: negative left small saphenous vein: negative left accessory vein: none present Please note there is no evidence of any venous aneurysms or significant tortuosity Assessment & Plan Assessment & Plan (1) Varicose veins of both lower extremities with inflammation: Code(s): I83.11 - Varicose veins of right lower extremity with inflammation; I83.12 - Varicose veins of left lower extremity with inflammation Category: Medical Plan: I discussed with the patient that her vein test results were normal, indicating no significant vascular issues. I recommended switching to Advil for its anti- inflammatory effects and suggested a potential referral to orthopedics if her musculoskeletal pain persists. We also talked about the importance of wearing compression stockings to manage her venous insufficiency, despite the discomfort they may cause. She will follow up with us on an as-needed basis. Thank you for allowing us to assist in her care Coding Level of Care Code Est Pt Level 4 (37170) Diagnoses Varicose veins of both lower extremities with inflammation I83.11; I83.12
--- OUTSIDE RECORDS SUMMARY | 2024-12-15 08:53 | XMS_ITS | Clinical Summary ---
Author Organization [facility] Address [address] [place] [address] Care Team Providers Care Statue Maker Name Role Phone Unavailable Primary Care Provider [...] Smear 11/19/1995 Colorectal Cancer Screening: Colonoscopy 06/25/2023 HIV Screening 06/25/2023 Hepatitis C Screening 06/25/2023 Social Influencers of Health Screening 06/25/2023 COVID-19 Vaccine ( - 2023-2 5 season) 2024 Depression Screening 05/27/2024 Pneumococcal Vaccine: 50+ Ye ars (1 of 1 - PCV) 2024 Zoster Vaccines (1 of 2) 2024 Influenza Vaccine (#1) 2025 HIB Vaccines Aged Out No longer [...] Documents on File Type Date Recorded Patient Caramel Cutter Hand Expl anation Health Care Decision (hx) 03/18/2020 AD HERNANDEZ DIRECTIVE Health Care Decision (hx) 03/18/2020 AD HERNANDEZ DIRECTIVE Health Care Decision (hx) 03/18/2020 AD HERNANDEZ DIRECTIVE
--- OUTSIDE RECORDS SUMMARY | 2024-12-15 08:53 | XMS_ITS | Clinical Summary ---
Author Organization [facility] Address [address] [place] [address] Phone Care Team Providers Care Coal Shoveler Name Role Phone Johana Hudson MD Primary Care Provider Social History Tobacco Use Types Packs/Day Years Used Date Smoking Tobacco: Never Assessed Education Answer Date Recorded Are you interested in more education? Not on jaime e 11/08/2022 Are you concerned about learning? Not on file 11/08/2022 No 11/08/2022 No 11/08/2022 Digital Access Answer Date Recorded No 11/08/2022 No 11/08/2022 Reliable internet access at home? Not on file 11/08/2022 Device with a working camera? Not on file Comments Unknown Sex and Gender Information Value Date Recorded Sex Assigned at Not on file Legal Sex Female 1:43 PM EDT Gender Identity Not on file Sexual Orientation Not on file Plan of Treatment Not on file Medical Devices Not on file Insurance [facility] [place] [address] [place] [address] [place] [address] [place] [address] [employer] [facility] [employer] [facility] [employer] Care Teams Coal Shoveler Relationship Specialty Start Date End Date Johana Hudson MD [address] [place] [address] [place] [address] PCP - General Internal Medicine 11/06/22 Additional Source Comments The information contained in this document represents components of the legal health record. It is not the complete legal health record.[facility]
--- OUTSIDE RECORDS SUMMARY | 2024-12-15 08:53 | XMS_ITS | Clinical Summary ---
Author Organization [facility] Address [address] [place] [address] Care Team Providers Care Nut Packer Name Role Phone Unavailable Primary Care Provider [...] Vaccine (1 of 2) 2024 Influenza Vaccine (#1) 2025 Pneumococcal Vaccine Aged Out No long er eligible based on patient's age to complete this topic RSV Ped < 20 months Aged Out No longe r eligible based on patient's age to complete this topic
[2024-12-15 08:54] VITALS: BMI 29.6
== END 2024-12-15 09:25 | disposition home or self-care (01) ==
LOC: HO.HVS 08:36
PROVIDERS: PCP Internal Medicine; Visit Provider Surgery Vascular Surgery
DX: I83.11 Varicose veins of right lower extremity with inflammation (principal); I83.12 Varicose veins of left lower extremity with inflammation
CPT/HCPCS: 99214